=== PATIENT | female | born 1995 | race Caucasian/White ===

== ENCOUNTER 2020-02-23 20:10 | Emergency (ER) | payer MEDICAID, SELFPAY ==
--- NOTE | 2020-02-23 20:25 | XRR_ITS ---
PROCEDURE INFORMATION: Exam: XR Chest, 2 Views Exam date and time: 02/23/2020 9:23 PM Age: 24 years old Clinical indication: Cough; Additional info: Shortness of breath/cough TECHNIQUE: Imaging protocol: XR of the chest Views: 2 views. COMPARISON: CR Chest 1 [place] [id number] 02/08/2019 8:18 PM FINDINGS: Lungs: Unremarkable. No consolidation. Pleural space: Unremarkable. No pleural effusion. No pneumothorax. Heart/Mediastinum: Unremarkable. No cardiomegaly. Bones/joints: Unremarkable. XR/XR chest 2V* [id number] IMPRESSION: No acute findings.
[2020-02-23 20:49] VITALS: BP 123/80; PULSE 105; RESP 18; TEMP 36.6; O2SAT 97; BMI 41.0
--- NOTE | 2020-02-23 21:52 | W.ED.URI ---
HPI - URI/Sore Throat General: Chief Complaint: Upper Respiratory Infection Stated Complaint: COUGH/SOB Time Seen by Provider: 02/23/20 21:33 Source: patient Mode of arrival: ambulatory Limitations: no limitations History of Present Illness: HPI Narrative: Patient comes in with 2-day history of upper respiratory infection. Patient reports cough nasal drainage and malaise. Patient appears unwell. Patient appears in no pain. Review of Systems General: Reports: 10 or more systems reviewed and unremarkable except in HPI and below ENMT: Reports: nasal discharge Resp: Reports: non-productive cough [facility] ED Female Reproductive History: Date of last menstrual period: 02/01/20 Physical Exam Const: COMMON NORMALS: no acute distress and patient oriented x3 GENERAL APPEARANCE: cooperative HENMT: COMMON NORMALS: normocephalic and TM's normal bilaterally HEAD & SCALP: normal to inspection and normocephalic NOSE: Nasal discharge present TYMPANIC MEMBRANE: TM's normal bilaterally MOUTH: Normal oral and palatal mucosa present THROAT: posterior oropharynx normal Eye: GENERAL EYE: appearance normal, both eyes and all related structures Neck/C-Spine: COMMON NORMALS: full ROM Lymph: LYMPHATIC: no lymphadenopathy noted Chest: COMMONS NORMALS: normal inspection of the chest Resp: COMMON NORMALS: normal respiratory effort EFFORT & INSPECTION: Yes able to speak in complete sentences Cardio: COMMON NORMALS: regular rate and regular rhythm RATE: regular rate RHYTHM: regular rhythm GI: COMMON NORMALS: non-tender Back/Pelvis: COMMON NORMALS: thoracic and lumbar spine normal to inspection Extremity: COMMON NORMALS: normal to inspection Neuro: COMMON NORMALS: patient oriented x3 and moves all extremities Psych: COMMON NORMALS: mental status grossly normal and cooperative Skin: COMMON NORMALS: no rashes or lesions noted GENERAL SKIN EXAM: no rashes or lesions noted Course Vital Signs: Vital signs: Vital Signs Temperature 97.8 F 02/23/20 20:49 Pulse Rate 105 H 02/23/20 20:49 Respiratory Rate 18 02/23/20 20:49 Blood Pressure 123/80 02/23/20 20:49 Pulse Oximetry 97 02/23/20 20:49 MDM - URI/Sore Throat MDM Narrative: Medical decision making narrative: Patient comes in with respiratory infection. Patient reports runny nose cough for the last 2 days. Patient reports her son became sick first and then she became ill. 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 Exam notes nasal discharge, pharyngeal erythema, lungs clear to auscultation. Vital signs normal. Differential diagnosis includes but not limited to upper respiratory infection sinusitis, bronchitis. Reviewed exam recommended treatment with albuterol and Mucinex D. Encourage plenty of fluids Tylenol and ibuprofen for aches and pains. 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 Patient reports understanding of care plan and need for follow-up and self quarantine. Discharge Plan Discharge Patient Disposition: Home, Self-Care Clinical Impression: Upper respiratory infection Qualifiers: URI type: unspecified URI Qualified Code(s): J06.9 - Acute upper respiratory infection, unspecified Condition: Stable Prescriptions: New albuterol sulfate 90 mcg/actuation HFA aerosol inhaler 2 inh INHALATION Q4H PRN (Reason: shortness of breath or wheezing) Qty: 8.5 RF: 0 Mucinex D 60-600 mg tablet extended release 12 hr 1 tab PO BID Qty: 14 RF: 0 Discharge Orders: Discharge Order (Routine); Ordered 02/23/20 Ordered By: Pravin Dyer Discharge Diet: Usual diet Discharge Activity: Increase activity as tolerated Patient Instructions: Upper Respiratory Infection (ED) Activity Restrictions/Additional Instructions: Encourage plenty of fluids. Acetaminophen and ibuprofen for aches and pains or fever. Use medication Mucinex D and albuterol inhaler as directed. Follow-up with primary care as needed. Return to the ER for worsening symptoms. Self quarantine for the next 3 days while COVID testing is running. Stand Alone Forms: Work/School Release Coding Level of Care Code ED Commutator Inspector for Mahesh Goddard
[2020-02-25 18:31] LABS: Quest SARS-CoV-2 RNA NOT DETECTED (NOT DETECTED)
== END 2020-02-23 22:18 | disposition home or self-care (01) ==
PROVIDERS: Emergency Provider Nurse Practitioner Family
DX: J06.9 Acute upper respiratory infection, unspecified (principal)
CPT/HCPCS: 12345; 71046; 87635; 99281; 99283

== ENCOUNTER 2020-03-13 14:15 | Outpatient (CLI) | payer OTHER, SELFPAY ==
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
== END 2020-03-13 14:16 | disposition home or self-care (01) ==
LOC: RAD 14:20
PROVIDERS: Visit Provider Nurse Practitioner Family
DX: N92.6 Irregular menstruation, unspecified (principal); N94.10 Unspecified dyspareunia; R10.30 Lower abdominal pain, unspecified
CPT/HCPCS: 76830; 76856

== ENCOUNTER 2020-05-18 17:57 | Emergency (ER) | payer OTHER, SELFPAY ==
[2020-05-18 20:05] VITALS: BP 123/91; PULSE 97; RESP 17; TEMP 36.6; O2SAT 97; BMI 42.5
--- NOTE | 2020-05-18 20:11 | W.ED.COVID ---
HPI - COVID General: Chief Complaint: COVID symptoms Stated Complaint: +COVID 2 DAYS AGO, INCREASED SYMPTOMS TODAY Time Seen by Provider: 05/18/20 19:51 Source: patient Mode of arrival: ambulatory Limitations: no limitations Triage information: Has fever, cough or shortness of breath. Exposure to COVID + person last 14 days History of Present Illness: HPI Narrative: Patient reports that she tested positive for COVID 3 days ago. Patient appears mildly unwell. Patient appears in no acute distress. COVID 19 common symptoms: positive dyspnea COVID Results: SARS-CoV-2 RNA (RT-PCR) Not detected (NOT DETECTED) 02/23/20 22:00 02/23/20 Review of Systems General: Reports: 10 or more systems reviewed and unremarkable except in HPI and below Resp: Reports: dyspnea [facility] ED Female Reproductive History: Date of last menstrual period: 05/09/20 Physical Exam Const: COMMON NORMALS: no acute distress and patient oriented x3 GENERAL APPEARANCE: cooperative HENMT: COMMON NORMALS: normocephalic, TM's normal bilaterally and Normal external nose present HEAD & SCALP: normal to inspection and normocephalic NOSE: Normal external nose present TYMPANIC MEMBRANE: TM's normal bilaterally MOUTH: Normal oral and palatal mucosa present THROAT: posterior oropharynx normal Eye: GENERAL EYE: appearance normal, both eyes and all related structures Neck/C-Spine: COMMON NORMALS: full ROM Lymph: LYMPHATIC: no lymphadenopathy noted Chest: COMMONS NORMALS: normal inspection of the chest Resp: COMMON NORMALS: normal respiratory effort EFFORT & INSPECTION: Yes able to speak in complete sentences Cardio: COMMON NORMALS: regular rate and regular rhythm RATE: regular rate RHYTHM: regular rhythm GI: COMMON NORMALS: non-tender Back/Pelvis: COMMON NORMALS: thoracic and lumbar spine normal to inspection Extremity: COMMON NORMALS: normal to inspection Neuro: COMMON NORMALS: patient oriented x3 and moves all extremities Psych: COMMON NORMALS: mental status grossly normal and cooperative Skin: COMMON NORMALS: no rashes or lesions noted GENERAL SKIN EXAM: no rashes or lesions noted Course Vital Signs: Vital signs: Vital Signs Temperature 97.9 F 05/18/20 20:05 Pulse Rate 97 05/18/20 20:05 Respiratory Rate 17 05/18/20 20:05 Blood Pressure 123/91 05/18/20 20:05 Pulse Oximetry 97 05/18/20 20:05 MDM - COVID MDM Narrative Medical decision making narrative: Patient comes in for concerns of worsening COVID symptoms. Patient has been diagnosed 3 days prior. Exam was normal. No signs of significant illness. Differential diagnosis includes close COVID exposure, COVID-19, upper respiratory infection, allergic rhinitis. Vital signs are normal. Reviewed pulse oximetry use. Recommendations for treatment and follow-up. Lab Data COVID Results: SARS-CoV-2 RNA (RT-PCR) Not detected (NOT DETECTED) 02/23/20 22:00 02/23/20 Discharge Plan Discharge Patient Disposition: Home Clinical Impression: COVID-19 Condition: Stable Prescriptions: No Action albuterol sulfate 90 mcg/actuation HFA aerosol inhaler 2 inh INHALATION Q4H PRN (Reason: shortness of breath or wheezing) Qty: 8.5 RF: 0 Mucinex D 60-600 mg tablet extended release 12 hr 1 tab PO BID Qty: 14 RF: 0 Discharge Orders: Discharge Order (Routine); Ordered 05/18/20 Ordered By: Pravin Dyer Discharge Diet: Usual diet Discharge Activity: Increase activity as tolerated Activity Restrictions/Additional Instructions: Home and rest. Acetaminophen and ibuprofen for pain and discomfort. Drink plenty of fluids. Stay well-hydrated. Monitor oxygen per pulse ox every 3 hours as needed for evaluation of oxygen saturation. If oxygen saturation is below 90% return to the ER for further evaluation and treatment. Return to the ER as needed for concern. Coding Level of Care Code ED Motor Brakeman for Mahesh Goddard
[2020-05-18 20:54] VITALS: O2SAT 97
== END 2020-05-18 21:12 | disposition home or self-care (01) ==
PROVIDERS: Emergency Provider Nurse Practitioner Family
DX: U07.1 COVID-19 (principal)
CPT/HCPCS: 12345; 99282

== ENCOUNTER 2020-07-25 11:22 | Emergency (ER) | payer OTHER, SELFPAY ==
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
[2020-07-25 11:27] VITALS: BP 116/83; PULSE 91; RESP 18; TEMP 36.3; O2SAT 96; BMI 42.5
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
[2020-07-25] MEDS: ketorolac 60 mg/2 mL INJ IM (12:50)
[2020-07-25 14:02] VITALS: BP 105/72; PULSE 72; RESP 14; O2SAT 97
[2020-07-25 15:06] VITALS: BP 120/78; PULSE 76; RESP 14; O2SAT 97
== END 2020-07-25 15:06 | disposition home or self-care (01) ==
PROVIDERS: Emergency Provider Physician Assistant
DX: Z04.1 Encounter for examination and observation following transport accident (principal); K04.7 Periapical abscess without sinus; V89.2XXA Person injured in unspecified motor-vehicle accident, traffic, initial encounter
CPT/HCPCS: 12345; 70450; 70486; 71046; 73562; 96372; 99281; 99283; J1885

== ENCOUNTER 2021-02-03 19:17 | Emergency (ER) | payer OTHER, SELFPAY ==
[2021-02-03 19:29] VITALS: BP 116/77; PULSE 88; RESP 16; TEMP 36.9; O2SAT 98; BMI 42.5
--- NOTE | 2021-02-03 20:10 | XRR_ITS ---
PROCEDURE INFORMATION: Exam: XR Left Ankle Exam date and time: 02/03/2021 8:10 PM Age: 25 years old Clinical indication: Injury or trauma; Fall; Blunt trauma and swelling (edema); Injury details: Folding chair collapsed, left ankle swelling and bruising TECHNIQUE: Imaging protocol: XR Left ankle. Views: 3 or more views. COMPARISON: No relevant prior studies available. FINDINGS: Bones/joints: No acute fracture or dislocation. Soft tissues: Normal. XR/XR ankle LT min 3V* [id number] IMPRESSION: No acute fracture or dislocation.
--- NOTE | 2021-02-03 20:10 | XRR_ITS ---
PROCEDURE INFORMATION: Exam: XR Right Ankle Exam date and time: 02/03/2021 8:10 PM Age: 25 years old Clinical indication: Injury or trauma; Fall; Blunt trauma and swelling (edema); Injury details: Folding chair collapsed, right ankle swelling and bruising TECHNIQUE: Imaging protocol: XR Right ankle. Views: 3 or more views. COMPARISON: No relevant prior studies available. FINDINGS: Bones/joints: No acute fracture or dislocation. Soft tissues: Normal. XR/XR ankle RT min 3V* [id number] IMPRESSION: No acute fracture or dislocation.
--- NOTE | 2021-02-03 22:06 | ED_ITS ---
HPI - Extremity Injury (Lower) General: Chief Complaint: Extremity Injury, Lower Stated Complaint: wc/ankle injury Time Seen by Provider: 02/03/21 22:03 Source: patient Mode of arrival: ambulatory Limitations: no limitations History of Present Illness: HPI Narrative: Patient is a 25-year-old female who presents to ED today with complaints of bilateral ankle and foot pain that o ccurred yesterday after she was sitting in a collapsible chair in the chair collapsed causing her ankles to get caught underneath her. Patient has been ambulatory since the event but states she has noticed swelling and bruising and increasing pain. She has no other complaints and no other injuries at this time. complaint: ankle injury and foot injury Onset (ago): day(s) (yesterday) Injury: Bilateral: ankle and foot Place: home Relieving factors: immobilization Exacerbating factors: weight bearing, movement and palpation Context: fall Associated symptoms: Reports no associated symptoms Other symptoms: none Review of Systems Musc: Reports: joint pain (bilateral feet/ankles) and joint swelling (bilateral ankles) Neuro: Denies: numbness in extremities or sensory changes [facility] ED Female Reproductive History: Date of last menstrual period: 01/06/21 Physical Exam Const: COMMON NORMALS: no acute distress, patient oriented x3, no limitations and alert GENERAL APPEARANCE: cooperative NUTRITIONAL APPEARANCE: overweight Extremity: RIGHT LOWER EXTREMITY: Yes foot & digits and Yes foot & digits LEFT LOWER EXTREMITY: Yes ankle joint and Yes foot & digits OTHER: swelling and throughout bilateral ankles; she has ecchymosis to bilateral medial aspects of feet; bilateral LEs NV intact Neuro: COMMON NORMALS: patient oriented x3, moves all extremities, no focal motor deficits and no sensory deficits noted SENSORIUM/ORIENTATION: Yes alert Skin: NARRATIVE SKIN EXAM: see extremity assessment for pertinent skin findings Course Vital Signs: Vital signs: Vital Signs Temperature 98.5 F 02/03/21 19:29 Pulse Rate 85 02/03/21 22:52 Respiratory Rate 16 02/03/21 22:52 Blood Pressure 116/77 02/03/21 19:29 Pulse Oximetry 99 02/03/21 22:52 MDM - Extremity Injury (Lower) MDM Narrative: Medical decision making narrative: Bilateral foot/ankle XRs negative. Discussed RICE therapy. Can follow up with PCP in 1-2 weeks for continued pain. Discharge Plan Discharge Patient Disposition: Home Clinical Impression: Ankle sprain Qualifiers: Encounter type: initial encounter Involved ligament of ankle: unspecified ligament Laterality: unspecified laterality Qualified Code(s): S93.409A - Sprain of unspecified ligament of unspecified ankle, initial encounter Foot sprain Qualifiers: Encounter type: initial encounter Laterality: unspecified laterality Qualified Code(s): S93.609A - Unspecified sprain of unspecified foot, initial encounter Condition: Stable Prescriptions: No Action albuterol sulfate 90 mcg/actuation HFA aerosol inhaler 2 inh INHALATION Q4H PRN (Reason: shortness of breath or wheezing) Qty: 8.5 RF: 0 Mucinex D 60-600 mg tablet extended release 12 hr 1 tab PO BID Qty: 14 RF: 0 ibuprofen 800 mg tablet 800 mg PO Q8H PRN (Reason: pain) Qty: 30 RF: 0 methocarbamol 750 mg tablet 750 mg PO Q8H Qty: 15 RF: 0 Discharge Orders: Discharge ED (Routine); Ordered 02/03/21 Ordered By: Bonnie Figueroa Patient Instructions: Ankle Sprain (ED), Foot Sprain (ED) Coding Level of Care Code ED Government Affairs Researcher for Chg Fwd Exam Expanded Problem Focused
--- NOTE | 2021-02-03 22:09 | XRR_ITS ---
PROCEDURE INFORMATION: Exam: XR Left Foot Exam date and time: 02/03/2021 10:09 PM Age: 25 years old Clinical indication: Injury or trauma; Fall; Blunt trauma and swelling (edema); Injury details: Folding chair collapsed, left foot swelling and bruising TECHNIQUE: Imaging protocol: XR Left foot. Views: 3 or more views. COMPARISON: CR (LOW EXM, ) 02/03/2021 10:09 PM FINDINGS: Bones/joints: No acute fracture or dislocation. Soft tissues: Normal. XR/XR foot LT min 3V* [id number] IMPRESSION: No acute fracture or dislocation.
--- NOTE | 2021-02-03 22:09 | XRR_ITS ---
PROCEDURE INFORMATION: Exam: XR Right Foot Exam date and time: 02/03/2021 10:09 PM Age: 25 years old Clinical indication: Injury or trauma; Fall; Blunt trauma and swelling (edema); Injury details: Folding chair collapsed, right foot swelling and bruising TECHNIQUE: Imaging protocol: XR Right foot. Views: 3 or more views. COMPARISON: CR (LOW EXM, ) 02/03/2021 10:07 PM FINDINGS: Bones/joints: No acute fracture or dislocation. Soft tissues: Normal. XR/XR foot RT min 3V* [id number] IMPRESSION: No acute fracture or dislocation.
[2021-02-03 22:52] VITALS: PULSE 85; RESP 16; O2SAT 99
--- NOTE | 2021-02-05 11:37 | PC.SOCIAL ---
Notified Lavinia Durbin in HR at [facility] on injury and eval being done in ED with approval from Aguila Stewart RN, RAYMOND.
== END 2021-02-03 22:53 | disposition home or self-care (01) ==
PROVIDERS: Emergency Provider Physician Assistant
DX: S93.409A Sprain of unspecified ligament of unspecified ankle, initial encounter (principal); S93.609A Unspecified sprain of unspecified foot, initial encounter; X50.1XXA Overexertion from prolonged static or awkward postures, initial encounter
CPT/HCPCS: 73610; 73630; 99282

== ENCOUNTER → 2021-04-17 16:58 | Outpatient (BNVA) | payer MEDICAID, SELFPAY | PROVIDERS: Visit Provider Registered Nurse Neonatal Intensive Care | DX: Z32.00 Encounter for pregnancy test, result unknown (principal); J02.9 Acute pharyngitis, unspecified | CPT/HCPCS: 81025; 87880 ==

== ENCOUNTER 2021-08-22 17:56 | Emergency (ER) | payer BC, SELFPAY ==
[2021-08-22 18:18] VITALS: BP 131/89; PULSE 70; RESP 16; TEMP 36.4; O2SAT 98; BMI 41.1
--- NOTE | 2021-08-22 18:32 | ED_ITS ---
HPI - Back Pain/Injury General: Chief Complaint: Urogenital-Female Stated Complaint: LOWER BACK PAIN Time Seen by Provider: 08/22/21 18:09 Source: patient Mode of arrival: ambulatory Limitations: no limitations History of Present Illness: HPI Narrative: Patient is a 25-year-old female who presents to ED today with complaints of left sided back pain over the past 2 days. Patient denies any trauma or precipitating injuries. There is no radiation to her discomfort. She does not complain of dysuria, frequency, urgency but has noticed her urine is brown in color which is abnormal for her. She does not have a history of nephro/ureterolithiasis. Denies fevers, chills, body aches. MD elicited complaint: back pain Onset (ago): day(s) Timing: constant Similar Symptoms Previously: No Location: left lower back Radiation: none Exacerbating factors: none Relieving factors: none Associated symptoms: Reports nausea; Deny abdominal pain, chills, difficulty walking, dysuria, fatigue, fever(s), urinary urgency or vomiting Work related injury: No Review of Systems Const: Denies: fever(s), chills, body aches, fatigue or malaise Card: Denies: chest pain Resp: Denies: dyspnea GI: Reports: nausea; Denies: abdominal pain, vomiting or diarrhea : Reports: flank pain and other (dark urine); Denies: difficulty voiding, dysuria, urinary frequency, urinary urgency, urinary hesitancy, dribbling or pelvic pain Musc: Reports: back pain; Denies: neck pain, extremity pain, joint pain or joint swelling Skin/Breast: Denies: rash Neuro: Denies: headache(s), numbness in extremities, weakness in extremities, sensory changes, difficulty walking or dizziness [facility] ED Female Reproductive History: Date of last menstrual period: 01/06/21 Physical Exam Const: COMMON NORMALS: no acute distress, patient oriented x3, no limitations and alert GENERAL APPEARANCE: cooperative NUTRITIONAL APPEARANCE: obese morbidly obese ORIENTATION/CONSCIOUSNESS: Yes awake, Yes oriented to person, Yes oriented to place and Yes oriented to time Chest: COMMONS NORMALS: normal inspection of the chest and normal palpation of entire chest wall Resp: COMMON NORMALS: normal respiratory effort and clear to auscultation bilaterally AUSCULTATION: clear to auscultation bilaterally Cardio: COMMON NORMALS: regular rate and regular rhythm RATE: regular rate RHYTHM: regular rhythm GI: COMMON NORMALS: Normal to inspection, nondistended, normoactive bowel sounds present, Soft to palpation, non-tender, No hepatosplenomegaly present and no masses PALPATION: Yes Soft to palpation and Yes No hepatosplenomegaly present Back/Pelvis: BACK IMAGE (FEMALE): 1. TTP Extremity: COMMON NORMALS: normal to inspection and full ROM GENERAL: Yes normal exam except as noted Neuro: COMMON NORMALS: patient oriented x3, moves all extremities, no focal motor deficits, no sensory deficits noted and gait normal SENSORIUM/ORIENTATION: Yes alert, Yes oriented to person, Yes oriented to place and Yes oriented to time Skin: COMMON NORMALS: no rashes or lesions noted GENERAL SKIN EXAM: no rashes or lesions noted Course Vital Signs: Vital signs: Vital Signs Temperature 97.6 F 08/22/21 18:18 Pulse Rate 70 08/22/21 18:18 Respiratory Rate 16 08/22/21 18:18 Blood Pressure 131/89 08/22/21 18:18 Pulse Oximetry 98 08/22/21 18:18 MDM - Back Pain/Injury MDM Narrative: Medical decision making narrative: Patient is a 25-year-old female here for left-sided back pain. On CT imaging she has a mild left obstructive uropathy due to a 7 mm calculus in her proximal ureter. Pain is easily controlled here. Her vital signs are stable. Lab work is unremarkable. She has a normal white count. Kidney functions are normal. UA showing gross hematuria. Contaminated specimen. At this time we will treat with pain/nausea medications and Flomax and get her prompt follow-up with Dr. Ley for further evaluation. Strict return to ED precautions given. Lab Data: Labs: Lab Results 08/22/21 08/22/21 08/22/21 18:53 19:51 19:51 WBC 7.5 10^3/uL 10^3/ uL (4.0-10.0) RBC 4.99 10^6/uL 10^6 /uL (4.1-5.3) Hgb 14.8 g/dL g/dL (11.5-15.3) Hct 45.1 % % (37.0-47.0) MCV 90.4 fl fl (81-99) MCH 29.7 pg pg (28.0-34.0) MCHC 32.8 g/dL g/dL (30.0-36.0) RDW 12.3 % % (12.1-15.1) Plt Count 359 10^3/cmm 10^3 /cmm (130-400) MPV 11.0 fL H fL (7.4-10.4) Neut % (Auto) 66.1 % % Lymph % (Auto) 24.8 % % [place] % (Auto) 6.3 % % Eos % (Auto) 1.7 % % Baso % (Auto) 0.8 % % Neut # (Auto) 4.96 10^3/uL 10^3 /uL (1.8-7.7) Lymph # (Auto) 1.9 10^3/uL 10^3/ uL (0.8-4.8) [place] # (Auto) 0.5 10^3/uL 10^3/ uL (0.2-0.9) Eos # (Auto) 0.1 10^3/uL 10^3/ uL (0.0-0.8) Baso # (Auto) 0.1 10^3/uL 10^3/ uL (0.0-0.1) Nucleated RBC % (a uto) 0 % % Nucleated RBCs # 0.0 /100WBC /100W BC Sodium 139 mmol/L mmol/L (136-145) Potassium 4.2 mmol/L mmol/L (3.5-5.1) Chloride 104 mmol/L mmol/L (98-107) Carbon Dioxide 24 mmol/L mmol/L (22-29) Anion Gap 15.2 (5-19) BUN 11 mg/dL mg/dL (6-20) Creatinine 1.0 mg/dL H mg/dL (0.5-0.9) GFR Calculation 66.5 mL/min L mL/ min (90-130) Glucose 88 mg/dL mg/dL (65-115) Calculated Osmolal ity 287 mOsm/kg mOsm/ kg (285-295) Calcium 9.2 mg/dL mg/dL (8.5-10.5) Total Bilirubin 0.3 mg/dL mg/dL (0.15-1.2) AST 20 U/L U/L (0-32) ALT 27 U/L U/L (0-33) Alkaline Phosphata se 93 IU/L IU/L (35-105) Total Protein 7.1 g/dL g/dL (6.6-8.7) Albumin 4.5 g/dL g/dL (3.5-5.2) Globulin 2.6 g/dL g/dL (1.3-4.6) HCG, Qual Urine Color Brown (Yellow) Urine Appearance Cloudy (CLEAR) Urine pH 6.5 (5-7) Ur Specific Gravit y 1.025 (1.005-1.030) Urine Protein 2+ H (Negative) Urine Glucose (UA) Norm (Normal) Urine Ketones 1+ H (Negative) Urine Blood 3+ H (Negative) Urine Nitrate Negative (Negative) Urine Bilirubin 1+ H (Negative) Urine Urobilinogen 1 mg/dL H mg/dL (Negative) Ur Leukocyte Lizz ase 1+ H (Negative) Urine RBC Too numerous to c nt /hpf H /hpf (0-2) Urine WBC 10-15 /hpf H /hpf (0-5) Ur Squamous Epith Cells 10-15 /hpf H /hpf (0-5) Amorphous Sediment Not Reportable Urine Bacteria 1+ /hpf H /hpf (NONE) Urine Yeast 2+ /hpf H /hpf 08/22/21 19:51 WBC RBC Hgb Hct MCV MCH MCHC RDW Plt Count MPV Neut % (Auto) Lymph % (Auto) [place] % (Auto) Eos % (Auto) Baso % (Auto) Neut # (Auto) Lymph # (Auto) [place] # (Auto) Eos # (Auto) Baso # (Auto) Nucleated RBC % (a uto) Nucleated RBCs # Sodium Potassium Chloride Carbon Dioxide Anion Gap BUN Creatinine GFR Calculation Glucose Calculated Osmolal ity Calcium Total Bilirubin AST ALT Alkaline Phosphata se Total Protein Albumin Globulin HCG, Qual Negative (Negative) Urine Color Urine Appearance Urine pH Ur Specific Gravit y Urine Protein Urine Glucose (UA) Urine Ketones Urine Blood Urine Nitrate Urine Bilirubin Urine Urobilinogen Ur Leukocyte Lizz ase Urine RBC Urine WBC Ur Squamous Epith Cells Amorphous Sediment Urine Bacteria Urine Yeast Imaging Data^: CT renal: Radiologist's impression: [facility] [address] [place] [address] CT Scan Report Signed Patient: Massiel Antoine Unit #: [id number] : 1995 Acct#:[id number] Age/Sex: 25 / F ADM Date: Loc: ER Room/Bed: Attending Dr: Ordering Provider/Ordering MD: Bonnie Figueroa Date of Service: 08/22/21 Procedure(s): CT kidney stone 10951 Accession Number(s): [id number] Report Number: [id number] PROCEDURE INFORMATION: Exam: CT Abdomen And Pelvis Without Contrast Exam date and time: 08/22/2021 7:42 PM Age: 25 years old Clinical indication: Other: Hematuria; Abdominal pain; Flank; Left; Prior surgery; Surgery type: ; Additional info: L back pain; Hematuria TECHNIQUE: Imaging protocol: Computed tomography of the abdomen and pelvis without contrast. Radiation optimization: All CT scans at this facility use at least one of these dose optimization techniques: automated exposure control; mA and/or kV adjustment per patient size (includes targeted exams where dose is matched to clinical indication); or iterative reconstruction. COMPARISON: US pelvic with transvaginal 03/13/2020 2:19 PM RADIATION DOSE METRICS: Total DLP (mGy-cm): 1973.96 FINDINGS: Liver: Normal. No mass. Gallbladder and bile ducts: Normal. No calcified stones. No ductal dilation. Pancreas: Normal. No ductal dilation. Spleen: Normal. No splenomegaly. Adrenal glands: Normal. No mass. Kidneys and ureters: There is mild left obstructive uropathy due to a 7 x 5 x 4 mm calculus in the proximal 3rd of the ureter. There is an additional 5 mm stone in the left lower renal pole and several smaller stones bilaterally in each kidney. Stomach and bowel: See Soft tissues finding. Appendix: No evidence of appendicitis. Intraperitoneal space: Unremarkable. No free air. No significant fluid collection. Vasculature: Unremarkable. No abdominal aortic aneurysm. Lymph nodes: Unremarkable. No enlarged lymph nodes. Urinary bladder: Unremarkable as visualized. Reproductive: Unremarkable as visualized. Bones/joints: Unremarkable. No acute fracture. Soft tissues: There is rectus diastasis of the mid abdominal wall measuring 5.9 cm. No bowel entrapment. CT/CT kidney stone [id number] IMPRESSION: 1. Mild left obstructive uropathy due to a 7 mm calculus in the proximal 3rd of the ureter. 2. Additional small bilateral nonobstructing intrarenal calculi. Dictated By: Rachel Garcia MD Signed By: Rachel Garcia MD Signed Date/Time: 08/22/212121 DD/ 41 Discharge Plan Discharge Patient Disposition: Home Clinical Impression: Calculus of proximal left ureter, Calculus of left kidney Condition: Stable Prescriptions: New hydrocodone-acetaminophen 5-325 mg tablet 1 tab PO Q6H PRN (Reason: pain) Qty: 15 RF: 0 ondansetron HCl [Zofran] 4 mg tablet 4 mg PO Q6H PRN (Reason: nausea and vomiting) Qty: 14 RF: 0 tamsulosin [Flomax] 0.4 mg capsule 0.4 mg PO DAILY Qty: 10 RF: 0 No Action amoxicillin 500 mg capsule 500 mg PO BID 10 Days Qty: 20 RF: 0 Discharge Orders: Discharge ED (Routine); Ordered 08/22/21 Ordered By: Bonnie Figueroa Referrals: Daniel Ley MD [Physician] - Patient Instructions: Kidney Stones (ED), How to Strain Your Urine (ED), Ureteral Stones (ED), Opioid Safety Activity Restrictions/Additional Instructions: [facility] is committed to fighting the nationwide opiate epidemic. We are providing ALL patients with information regarding opiate safety. If you received opiate pain medication during your stay or if you received a prescription for opiate pain medication-please review this handout. If not, you may disregard. Thank you. As we discussed Case management should contact you tomorrow to set you up with your follow-up appointment with Dr. Ley. You need to return to the [facility] department immediately for severe back/abdominal pain, uncontrollable pain, generally feeling unwell, fevers greater than 100.4, or any other concerns you may have. I hope you begin to feel better soon. Stand Alone Forms: Work/School Release Coding Level of Care Code ED Warehouse Administrative Assistant for Mahesh Fwd Exam Comprehensive
[2021-08-22 19:35] LABS: Specific Gravity, Urine 1.025 (1.005-1.030); Urine Appearance Cloudy (CLEAR); Urine Color Brown (Yellow); pH Urine 6.5 (5-7)
[2021-08-22 19:36] LABS: Add Urine Microscopic? YES; Bacteria Urine 1+ /hpf; Bilirubin Urine 1+ (Negative); Blood Urine 3+ (Negative); Glucose Urine UA Norm (Normal); Ketones Urine 1+ (Negative); Leukocyte Esterase Urine 1+ (Negative); Nitrate Urine Negative (Negative); Protein Urine 2+ (Negative); RBC Urine TOO NUMEROUS TO CNT /hpf (0-2); Urobilinogen Urine 1 mg/dL (Negative)
[2021-08-22 19:37] LABS: Add Urine Culture? No
--- NOTE | 2021-08-22 19:42 | CTR_ITS ---
PROCEDURE INFORMATION: Exam: CT Abdomen And Pelvis Without Contrast Exam date and time: 08/22/2021 7:42 PM Age: 25 years old Clinical indication: Other: Hematuria; Abdominal pain; Flank; Left; Prior surgery; Surgery type: ; Additional info: L back pain; Hematuria TECHNIQUE: Imaging protocol: Computed tomography of the abdomen and pelvis without contrast. Radiation optimization: All CT scans at this facility use at least one of these dose optimization techniques: automated exposure control; mA and/or kV adjustment per patient size (includes targeted exams where dose is matched to clinical indication); or iterative reconstruction. COMPARISON: US pelvic with transvaginal 03/13/2020 2:19 PM RADIATION DOSE METRICS: Total DLP (mGy-cm): 1973.96 FINDINGS: Liver: Normal. No mass. Gallbladder and bile ducts: Normal. No calcified stones. No ductal dilation. Pancreas: Normal. No ductal dilation. Spleen: Normal. No splenomegaly. Adrenal glands: Normal. No mass. Kidneys and ureters: There is mild left obstructive uropathy due to a 7 x 5 x 4 mm calculus in the proximal 3rd of the ureter. There is an additional 5 mm stone in the left lower renal pole and several smaller stones bilaterally in each kidney. Stomach and bowel: See Soft tissues finding. Appendix: No evidence of appendicitis. Intraperitoneal space: Unremarkable. No free air. No significant fluid collection. Vasculature: Unremarkable. No abdominal aortic aneurysm. Lymph nodes: Unremarkable. No enlarged lymph nodes. Urinary bladder: Unremarkable as visualized. Reproductive: Unremarkable as visualized. Bones/joints: Unremarkable. No acute fracture. Soft tissues: There is rectus diastasis of the mid abdominal wall measuring 5.9 cm. No bowel entrapment. CT/CT kidney stone [id number] IMPRESSION: 1. Mild left obstructive uropathy due to a 7 mm calculus in the proximal 3rd of the ureter. 2. Additional small bilateral nonobstructing intrarenal calculi.
[2021-08-22 20:06] LABS: Basophils # 0.1 10^3/uL (0.0-0.1); Basophils % 0.8 %; Eosinophils # 0.1 10^3/uL (0.0-0.8); Eosinophils % 1.7 %; Hematocrit 45.1 % (37.0-47.0); Hemoglobin 14.8 g/dL (11.5-15.3); Lymphocytes # 1.9 10^3/uL (0.8-4.8); Lymphocytes % 24.8 %; Mean Corpuscular HGB Conc 32.8 g/dL (30.0-36.0); Mean Corpuscular Hemoglobin 29.7 pg (28.0-34.0); Mean Corpuscular Volume 90.4 fl (81-99); Monocytes # 0.5 10^3/uL (0.2-0.9); Monocytes % 6.3 %; Neutrophils # 4.96 10^3/uL (1.8-7.7); Neutrophils % 66.1 %; Nucleated Red Blood Cells % 0 %; Platelet Count 359 10^3/cmm (130-400); Red Blood Count 4.99 10^6/uL (4.1-5.3); Red Cell Distribution Width 12.3 % (12.1-15.1); White Blood Count 7.5 10^3/uL (4.0-10.0)
[2021-08-22 20:40] LABS: HCG, Serum Qual Negative (Negative)
[2021-08-22] MEDS: acetaminophen 500 mg Tablet 1000 MG PO (20:45)
[2021-08-22 20:51] LABS: Alanine Aminotransferase 27 U/L (0-33); Albumin Level 4.5 g/dL (3.5-5.2); Alkaline Phosphatase 93 IU/L (35-105); Anion Gap 15.2 (5-19); Aspartate Amino Transferase 20 U/L (0-32); Blood Urea Nitrogen 11 mg/dL (6-20); Calcium 9.2 mg/dL (8.5-10.5); Carbon Dioxide 24 mmol/L (22-29); Chloride 104 mmol/L (98-107); Globulin 2.6 g/dL (1.3-4.6); Glomerular Filtration Rate 66.5 mL/min (90-130); Glucose 88 mg/dL (65-115); Osmolality Calculated 287 mOsm/kg (285-295); Potassium 4.2 mmol/L (3.5-5.1); Sodium 139 mmol/L (136-145); Total Bilirubin 0.3 mg/dL (0.15-1.2); Total Protein 7.1 g/dL (6.6-8.7)
[2021-08-22 22:34] VITALS: BP 127/89; RESP 18; O2SAT 98
--- NOTE | 2021-08-26 07:04 | DCPLANNER ---
exploration manager had message to schedule a follow up appointment for patient with Dr. Ley. exploration manager emailed patients information to Eladio Kruger and Julie in the office of Dr. Ley. Patients information will be printed and reviewed. Clinic will call patient with appointment information.
--- NOTE | 2021-08-27 07:01 | DCPLANNER ---
Patient had a follow up appointment scheduled for 08.26.[address] Ley - patient did attend appointment.
== END 2021-08-22 22:36 | disposition home or self-care (01) ==
PROVIDERS: Emergency Provider Physician Assistant
DX: N20.2 Calculus of kidney with calculus of ureter (principal)
CPT/HCPCS: 74176; 80053; 81001; 84703; 85025; 87086; 99283

== ENCOUNTER 2021-08-26 07:48 | Outpatient (CLI) | payer BC, SELFPAY ==
--- NOTE | 2021-08-26 07:30 | XR_ITS ---
WS: [id number] Exam: XR KUB [id number] Date/Time of Exam: 08/26/2021 7:57 AM Reason For Exam: STONES No bowel obstruction or free air. Previously noted renal calcifications and left ureteral calcificati on not definitely seen on today's exam. There is some motion artifact present. No sign of organ enlar gement. Regional bony elements are intact. XR/XR KUB [id number] IMPRESSION: 1. No acute abdominal finding. 2. Calcified renal stones and left ureteral calcification difficult to identify on this study.
== END 2021-08-26 07:49 | disposition home or self-care (01) ==
LOC: RAD 07:49
PROVIDERS: PCP Nurse Practitioner Family; Visit Provider Nurse Practitioner Family
DX: N20.0 Calculus of kidney (principal); N20.1 Calculus of ureter; Z20.822 Contact with and (suspected) exposure to COVID-19
CPT/HCPCS: 74018; 81003; 87635

== ENCOUNTER 2021-08-28 07:54 | Day surgery (SDC) | payer BC, MEDICAID, SELFPAY ==
[2021-08-27 15:20] VITALS: BMI 42.5
[2021-08-28] VITALS (13 sets, daily range): BP systolic 112–141; BP diastolic 84–96; PULSE 68–99; RESP 12–18; TEMP 36.2–36.4; O2SAT 93–98
--- NOTE | 2021-08-28 | SCC_ITS ---
Procedure Done: 1. Cystoscopy, left retrograde ureteropyelogram 2. LEFT: Ureteroscopy, laser lithotripsy left proximal ureteral stone 3. LEFT: Renoscopy, laser lithotripsy left lower pole additional stone 37.9 seconds of fluoroscopic guidance, for a cumulative dose of 36.67 mGy, was provided to Dr. Ley by the radiology department. C-arm images of the abdomen were saved for the patient's permanent record. MTDD
--- NOTE | 2021-08-28 08:02 | XR_ITS ---
WS: [id number] Exam: XR KUB [id number] Date/Time of Exam: 08/28/2021 8:15 AM Reason For Exam: Left ureteral stone, preop ureteroscopy No bowel obstruction or free air. Calcifications superimpose both kidneys probably renal stones. An 8 mm x 2 mm calcification superimposes the left transverse process of L3 and may represent a ureteral stone. No sign of organ enlargement. Regional bony elements are intact. XR/XR KUB [id number] IMPRESSION: 1. Calcifications superimpose both kidneys probably renal stones. 2. 8 x 2 mm calcification along the left paraspinal region at the level of L3 t hat could represent a ureteral stone. 4. No acute abdominal process.
--- NOTE | 2021-08-28 08:02 | SC_ITS ---
WS: [id number] Exam: C-arm FL for Urology Date/Time of Exam: 08/28/2021 8:02 AM Reason For Exam: Refractory left mid ureteral stone AP C-arm images of the left abdomen and pelvis are submitted for evaluation. Left retrograde pyelogram is performed. An intraluminal filling defect is seen in the upper left uret er and apparently represents the patient's known ureteral stone. Subsequent images depict a left retr ograde ureteral catheter positioned in the expected region of the left kidney. No other significant f inding on this limited study.
--- NOTE | 2021-08-28 08:52 | PM.OPSURHP ---
Providers/Chief Complaint Primary Care Provider: Erika Maher APRN Chief Complaint: calculus of left proximal ureter History of Present Illness Massiel is a 25 year old female admitted to outpatient surgery for endoscopic treatment of left proximal ureteral stone and possibly left renal calculus under the same setting. Presented with refractory renal colic secondary to a 7 mm stone left proximal ureter and was also found to have about a 7 to 8 mm left renal calculus. Pain was difficult to control. No evidence of infection. No contraindications to proceeding with treatment. She elected endoscopic treatment over ESWL and is admitted today for that procedure. There have been no significant changes since she was evaluated in the clinic 2 days ago. Pain is better controlled today. Preoperative KUB confirmed stone in roughly the same position as well as the renal calculus in the same position. I went over the details of the procedure with expectations prepost and intraoperatively. Discussed stent versus no stent. Reviewed the potential possibility that the stone would be inaccessible with retrograde approach via ureteroscopy and if that was the case a stent would be left indwelling either for passive dilation and reattempted endoscopy or conversion to ESWL when available. We also discussed potentially treating the left kidney stone if access is good and the proximal ureteral stone is readily treated. She asked appropriate questions. She seemed content with my answers. We reviewed benefits risk potential complications alternatives in detail and she expressed desire to proceed as previously planned. Informed consent was obtained. 08/26/2021: UROLOGY INITIAL visit (CR) Summary of outside records: [facility] emergency department (08/22/2021) Presented with 2-day history of left-sided back pain, denied radiation. No complaints of dysuria, frequency, or urgency but noticed her urine to be brown in color. No history of stones. WBC: 7.5. BUN: 11. Creatinine: 1.0. UA: 10-15 WBCs, too numerous to count RBCs, nitrite negative. CT scan: Mildly obstructing 7 mm Proximal left ureteral calculus, additional nonobstructing bilateral renal calculi. Discharged with prescriptions for hydrocodone, Zofran, and Flomax. Current data Additional history: No prior history of stones. No history of recurrent UTIs. Has been straining her urine and denies passage of stone. Complains of left mid back/flank pain and nausea. She feels that her left mid back pain radiates some to her right low back. UA:5-15 RBCs, nitrite negative. KUB: there is a calcification in the area where the stone was located on CT scan. Physical findings: left CVA tenderness, right paraspinous muscle tenderness. Discussion: Stone appears to be in the same location as seen on CT scan. She continues to remain symptomatic. Reviewed conservative management versus surgical intervention, she wants to proceed with surgical intervention. Information reviewed with Dr. Ley. Consent obtained for cystoscopy, Left: retrograde, ureteroscopy, laser, stent; risks, benefits, and alternatives were reviewed. Encouraged her to continue straining her urine. She has not been taking the TAMSULOSIN, encouraged her to do so. Using HYDROCODONE and ZOFRAN as needed. Plan: Outpatient surgery on 08/28/2021. Review of Systems Const: Reports: chills; Denies: fever(s) Eyes: Denies: change in vision ENMT: Denies: change in hearing Card: Reports: chest pain Resp: Denies: dyspnea or productive cough GI: Reports: abdominal pain and constipation : Reports: flank pain and urinary urgency; Denies: urinary frequency Musc: Reports: back pain Skin/Breast: Denies: rash or pruritus Neuro: Denies: seizure-like activity Psych: Reports: anxiety; Denies: depression Endo: Denies: flushing Car/Lymph: Denies: easy bruising or easy bleeding All/Imm: Denies: urticaria or acute wheezing Medications/Allergies Home Medications Medication Instructions Recorded Confirmed Last Taken Type hydrocodone-acetaminophen 1 tab PO Q6H PRN #15 tab 08/22/21 08/27/21 Unknown Rx ondansetron HCl [Zofran] 4 mg PO Q6H PRN #14 tab 08/22/21 08/27/21 Unknown Rx tamsulosin [Flomax] 0.4 mg PO DAILY #10 cap 08/22/21 08/27/21 Unknown Rx Allergies Allergy/AdvReac Type Severity Reaction Status Date / Time No Known Allergies Allergy Verified 08/27/21 15:19 PFSH PFSH: Surgical History (Updated 08/28/21 @ 08:53 by Daniel Ley MD) History of delivery History of plastic surgery Facial plastic surgery as a child Family History Father Healthy adult Mother Healthy adult Social History Smoking and tobacco status: never smoked Alcohol intake: never Marital status: Current occupational status: employed History of recent travel: No Female Reproductive History: Date of last menstrual period: 01/06/21 Vital Signs Weight: Weight last 48 hrs Weight 240 lb Physical Exam Const: COMMON NORMALS: no acute distress and patient oriented x3 GENERAL APPEARANCE: cooperative HENMT: COMMON NORMALS: normocephalic and atraumatic HEAD & SCALP: normocephalic and atraumatic Eye: COMMON NORMALS: no scleral icterus GENERAL EYE: appearance normal, both eyes and all related structures Neck/C-Spine: COMMON NORMALS: full ROM and No carotid bruits GENERAL: Yes normal visual inspection Lymph: LYMPHATIC: no lymphedema noted Resp: COMMON NORMALS: normal respiratory effort and clear to auscultation bilaterally EFFORT & INSPECTION: Yes able to speak in complete sentences and No labored AUSCULTATION: clear to auscultation bilaterally Cardio: COMMON NORMALS: regular rate and regular rhythm RATE: regular rate RHYTHM: regular rhythm GI: COMMON NORMALS: Soft to palpation and non-tender : BLADDER/KIDNEY EXAM: Yes CVA tenderness Back/Pelvis: GENERAL BACK: Yes CVA tenderness CVA tenderness: left LUMBAR SPINE/LOWER BACK: Yes paraspinal muscle tenderness (low back) Lumbar paraspinal muscle tenderness: right Extremity: OTHER: no lower extremity edema Neuro: COMMON NORMALS: patient oriented x3 SPEECH: speech normal GAIT: Yes Normal gait present Psych: COMMON NORMALS: Normal thought process present ATTITUDE: Yes calm MOOD & AFFECT: No anxious THOUGHT PROCESS: Normal thought process present Skin: COMMON NORMALS: no rashes or lesions noted and no jaundice A&P Assessment and plan (1) Calculus of proximal left ureter: 7 mm left proximal ureteral stone showing no evidence of further progression since diagnosis. Having intermittent severe renal colicky symptoms. Elected endoscopic treatment rather than waiting for ESWL. She also has a left renal calculus. Proceed as planned with left endoscopic treatment of the stone and if possible under the same study treat the left renal calculus as well. Status: Acute (2) Calculus of left kidney: Status: Acute Coding Level of Care Code Acute [facility] Diagnoses Calculus of proximal left ureter N20.1 Calculus of left kidney N20.0
[2021-08-28] MEDS: sodium chloride 0.9% 1,000 ML 30 ML IV (09:13)
[2021-08-28 09:28] LABS: OR HCG Qualitative Urine Negative (Negative)
--- NOTE | 2021-08-28 09:42 | ANES.PREANE2 ---
Pre-Anesthetic Assessment Pre-Anesthetic Assessment: Height/Weight: Height 1.6 m Weight 108.862 kg Temp Pulse Resp BP Pulse Ox 97.5 F L 82 18 129/86 98 08/28/21 08:51 08/28/21 08:51 08/28/21 08:51 08/28/21 08:51 08/28/21 08:51 Preop Diagnosis: Refractory symptomatic left mid ureteral stone Proposed Procedure: Operation Date: 08/28/21 09:15 Proposed Procedures p Cystoscopy [id number] mod 26/n20.1/m20.0(Not Applicable) - Daniel Ley MD s Retrograde Pyelogram(Left) - MD alison Ambrosio Ureteroscopy(Left) - Daniel Ley MD s Laser Lithotripsy(Left) - Daniel Ley MD s Ureteral Stent Placement(Left) - Daniel Ley MD Familial anesthetic complications: none Last intake: Intake Last Liquid Date 08/27/21 Last Liquid Time 22:00 Last Solid Date 08/27/21 Last Solid Time 22:00 Social: Social History: No alcohol and No tobacco Exam: Pre-Anes Outpt Exam: alert, oriented x 3, clear to auscultation bilaterally and regular rate & rhythm Airway: Cervical ROM: WNL MP: 1 Dentition: Chipped (front tooth,k broknen bottom) Metabolic: Metabolic: Morbid obesity Anesthetic Plan: ASA status: 2 Anesthesia: General Risk of > 500 ml blood loss (7ml/kg in children): No Medications/Allergies Current Medications: Current Medications Generic Name Dose Route Start Last Admin Trade Name Freq PRN Reason Stop Dose Admin Sodium Chloride 1,000 mls @ 30 ml s/hr 08/28/21 08:15 08/28/21 09:13 Sodium Chloride 0.9% IV 08/29/21 08:14 30 mls/hr .Q24H ANGELINA Administration PFSH Anesthesia PFSH: Surgical History (Updated 08/28/21 @ 08:53 by Daniel Ley MD) History of delivery History of plastic surgery Facial plastic surgery as a child Family History Father Healthy adult Mother Healthy adult Social History Smoking and tobacco status: never smoked Alcohol intake: never Marital status: Current occupational status: employed History of recent travel: No Female Reproductive History: Date of last menstrual period: 01/06/21 Data Anesthesia Other Labs: Laboratory Results - last 48 hr 08/28/21 08:21 Urine HCG, Qual Negative Cardiac Studies: No Data to Display
[2021-08-28] MEDS: levofloxacin-dextrose 5 % 500 MG/100 ML PREMIX 100 MG IV (10:10)
--- NOTE | 2021-08-28 10:10 | P.OP_ITS ---
Operative Report Date of procedure: August 28, 2021 Pre-op Diagnosis: Refractory symptomatic left mid ureteral stone Post-op Diagnosis: Refractory symptomatic left mid ureteral stone Procedure Done: 1. Cystoscopy, left retrograde ureteropyelogram 2. LEFT: Ureteroscopy, laser lithotripsy left proximal ureteral stone 3. LEFT: Renoscopy, laser lithotripsy left lower pole additional stone Implants: Left ureteral stent Surgeon: Jil Anesthesia: General Estimated blood loss: Minimal Urine output: Not measured Complications: None Condition: stable Disposition: PACU Brief History: Massiel is a very pleasant 25-year-old white female recently diagnosed with a very symptomatic left proximal ureteral stone with obstructive changes on CT scan in the absence of UTI. Ultimately because of the persistence of symptoms and lack of progression she elected to proceed with endoscopic treatment. Alternatives of ESWL were discussed. She is admitted today for ureteroscopic laser lithotripsy of left proximal ureteral stone but if access is not easily obtained then a stent placement for passive dilation and relief of obstruction. She also is known to have a larger left renal pelvic stone and we discussed the possibility of treating that stone if the ureteral stone was easily accessible and treatable and access to the left kidney was good. Preoperative KUB confirmed the stone was in roughly the same position Procedure: After routine preoperative evaluation examination and obtaining of informed consent she was taken to the operating suite on August 28, 2021 where general anesthesia was administered without difficulty after appropriate timeout was performed, SCDs confirmed to be functioning, preoperative antibiotics administered, beta-lucy protocol confirmed. Prepped and draped in the usual sterile fashion in dorsolithotomy position paying careful attention to avoiding pressure points. 21 Albanian cystoscope with 30 degree lens was introduced into the urethra meatus and advanced into the bladder to videoscopy. The bladder was systematically examined and found to be within normal limits. An 8 Albanian cone-tip catheter was intubated to the left ureteral orifice for left retrograde ureteropyelogram which confirmed a filling defect consistent with a stone seen on prior imaging in the proximal ureter. The left renal stone was also seen. There is no other gross abnormality identified. A flexible tip guidewire was then advanced up the left ureter bypassing the stone and curling in the upper pole calyx. The distal ureter was then dilated with a 15 Albanian 4 cm balloon. The safety wire was secured to the drapes. A second guidewire was then passed into the kidney and a 24 cm ureteral access sheath was advanced over the working guidewire to the hub. A flexible ureteroscope was then advanced up the ureteral access sheath to the level of the stone which was easily accessible. The stone was fragmented with a 365 ?m thulium superpulse laser fiber utilizing dusting technique. No large fragments remained and generally the residual was sand. The scope was then passed up into the kidney and the previously identified stone was found in one of the mid/lower pole calyces and treated in the same fashion with same results. No large fragments remained. Careful inspection of all the calyces was then conducted and no further large stone fragments could be found. The access sheath was backed down to the hub of the scope and the scope was slowly withdrawn and the ureter was carefully examined. No other stone fragments of any consequence were identified. The ureter was intact without significant trauma. Cystoscope was then backloaded over the guidewire and a 6 Albanian by 24 cm double-pigtail stent was advanced over the guidewire through the cystoscope into appropriate position as confirmed via fluoroscopy and cystoscopy. No string. The bladder was drained and the procedure was completed. She tolerated the procedure well without complications and was awakened in the operating room and returned to the recovery room in stable condition PLANS: 1. Anticipate discharge from outpatient surgery today 2. Follow-up in 1 week for cystoscopy and stent removal.
--- NOTE | 2021-08-28 11:09 | SUR.OPER ---
OMNIPAQUE 300MGI/ML 50ML ADDED TO STERILE FIELD. 19ML USED. 31 ML WASTED
[2021-08-28] MEDS: diphenhydrAMINE 50 mg/mL SDV 1mL (11:52)
[2021-08-28] MEDS: ondansetron 2 mg/ML SDV 2 mL 4 MG IVP (11:52)
[2021-08-28] MEDS: fentaNYL 50 mcg/mL INJ 2mL IVP (12:12)
--- NOTE | 2021-08-28 14:15 | ANE.PACU2 ---
Inpatient post-anesthesia follow up: Airway intact: Yes Vital signs: Temperature 97.2 F Pulse Rate 69 Respiratory Rate 18 Blood Pressure 112/84 Pulse Oximetry 93 Oxygen Delivery Me thod Room Air Oxygen Flow Rate Fraction of Inspir ed Oxygen Hydration adequate: Yes Nausea and vomiting: Yes Pain level: 2 Mental status: Baseline
== END 2021-08-28 13:43 | disposition home or self-care (01) ==
PROVIDERS: Anesthesiology; PCP Nurse Practitioner Family; Visit Provider Urology
PROC: 0TJB8ZZ Inspection of Bladder, Via Natural or Artificial Opening Endoscopic (ICD-10-PCS; CPT 52000; principal; 2021-08-28 09:05)
PROC: (CPT 74420; 2021-08-28 09:05)
PROC: 0TJ98ZZ Inspection of Ureter, Via Natural or Artificial Opening Endoscopic (ICD-10-PCS; CPT 52351; 2021-08-28 09:05)
PROC: (CPT 52356; 2021-08-28 09:05)
PROC: (CPT 50605; 2021-08-28 09:05)
DX: N20.1 Calculus of ureter (principal); E66.01 Morbid (severe) obesity due to excess calories; Z68.41 Body mass index [BMI] 40.0-44.9, adult
CPT/HCPCS: 52356; 74018; 76000; 81025; 84703; C2625; J1100; J1200; J1956; J2405; J2704; J2710; J3010; J3490; J7030

== ENCOUNTER 2021-09-06 11:16 | Outpatient (CLI) | payer BC, MEDICAID, SELFPAY ==
--- NOTE | 2021-09-06 11:30 | XRR_ITS ---
PROCEDURE INFORMATION: Exam: XR Abdomen Exam date and time: 09/06/2021 11:30 AM Age: 25 years old Clinical indication: Stent in left kidney with mild discomfort. Urolithiasis. TECHNIQUE: Imaging protocol: XR of the abdomen. Views: Frontal supine view of the abdomen. 1 View. COMPARISON: CR XR KUB [id number] 08/28/2021 8:18 AM FINDINGS: Tubes, catheters and devices: A left ureteral stent is noted. Gastrointestinal tract: Nonobstructive bowel gas pattern. Intraperitoneal space: No gross free air. Organs: No definite renal or ureteral stones are seen. Vasculature: No portal venous gas is seen. Bones/joints: No gross acute fracture is seen. Other findings: Hepatosplenomegaly. XR/XR KUB [id number] IMPRESSION: 1. A left ureteral stent is noted. 2. No definite renal or ureteral stones are seen. 3. Hepatosplenomegaly.
== END 2021-09-06 11:17 | disposition home or self-care (01) ==
PROVIDERS: Visit Provider Urology
DX: N20.9 Urinary calculus, unspecified (principal); Z96.0 Presence of urogenital implants; R16.2 Hepatomegaly with splenomegaly, not elsewhere classified
CPT/HCPCS: 74018; 87635

== ENCOUNTER 2021-09-11 08:09 | Day surgery (SDC) | payer BC, MEDICAID, SELFPAY ==
[2021-09-10 15:54] VITALS: BMI 42.5
--- NOTE | 2021-09-11 | SCC_ITS ---
Procedure done: Cystoscopy, left ureteroscopy with stent extraction. 10.2 seconds of fluoroscopic guidance, for a cumulative dose of 3.0 mGy, was provided to Dr. Ley by the radiology department. C-arm images of the abdomen were saved for the patient's permanent record. HUBERD
--- NOTE | 2021-09-11 08:28 | SC_ITS ---
WS: [id number] INTRAOPERATIVE TECHNIQUE: 2 Spot fluoroscopic images for intraoperative purposes. FLUOROSCOPY TIME: 10.2 seconds CLINICAL INFORMATION: Retained ureteral stent COMPARISON: None. FINDINGS: Intraoperative imaging utilized for left ureteroscopy with left stent exchange or removal. SC/C-arm FL for Urology IMPRESSION: Images obtained for intraoperative purposes.
--- NOTE | 2021-09-11 08:39 | ANES.PREANE2 ---
Pre-Anesthetic Assessment Height/Weight: Height 1.6 m Weight 108.862 kg Preop Diagnosis: Retained left ureteral stent with proximal migration Operation Date: 09/11/21 09:45 Proposed Procedures p Cystoscopy(Not Applicable) - MD alison Ambrosio Ureteral Stent Removal(Left) - MD JL Ambrosio Urolithiasis Medications/Allergies Home Medications Medication Instructions Recorded Confirmed Last Taken Type ondansetron HCl 4 mg tablet 4 mg PO Q6H PRN #14 tab 08/22/21 09/10/21 08/28/21 Rx (Zofran) tamsulosin 0.4 mg capsule (Flomax) 0.4 mg PO DAILY #10 cap 08/22/21 09/10/21 08/27/21 Rx ibuprofen 200 mg capsule 200 mg PO Q6H PRN 09/06/21 09/10/21 Unknown History acetaminophen 500 mg PO PRN PRN 09/11/21 09/11/21 09/10/21 History Allergies Allergy/AdvReac Type Severity Reaction Status Date / Time No Known Allergies Allergy Verified 09/10/21 15:53 PFSH Anesthesia Medical History Urolithiasis Surgical History History of delivery History of plastic surgery Facial plastic surgery as a child Status post laser lithotripsy of ureteral calculus Ureteral and left renal calculi August 2021 Family History Father Healthy adult Mother Healthy adult Social History Smoking and tobacco status: never smoked Alcohol intake: never Marital status: Current occupational status: employed History of recent travel: No Female Reproductive History Date of last menstrual period: 01/06/21 Data Anesthesia Cardiac Studies: No Data to Display
[2021-09-11 08:40] VITALS: BP 100/75; PULSE 74; RESP 18; TEMP 36.8; O2SAT 100
[2021-09-11] MEDS: sodium chloride 0.9% 1,000 ML 30 ML IV (08:47)
--- NOTE | 2021-09-11 08:59 | ANES.PREANE2 ---
Pre-Anesthetic Assessment Height/Weight: Height 1.6 m Weight 108.862 kg Preop Diagnosis: Retained left ureteral stent with proximal migration Operation Date: 09/11/21 09:45 Proposed Procedures p Cystoscopy(Not Applicable) - Daniel Ley MD s Ureteral Stent Removal(Left) - Daniel Ley MD Familial anesthetic complications: None Was Beta Bouchra taken within 24 hours: N/A Was Clonidine taken within 24 hours: N/A Social No alcohol and No tobacco Exam alert, oriented x 3, clear to auscultation bilaterally and regular rate & rhythm Airway Cervical ROM: within normal limits Mallampati: Class III Dentition: chipped Metabolic Morbid Obesity Anesthetic Plan ASA status: 2 Anesthesia: General Medications/Allergies Home Medications Medication Instructions Recorded Confirmed Last Taken Type ondansetron HCl 4 mg tablet 4 mg PO Q6H PRN #14 tab 08/22/21 09/10/21 09/06/21 Rx (Zofran) tamsulosin 0.4 mg capsule (Flomax) 0.4 mg PO DAILY #10 cap 08/22/21 09/10/21 09/06/21 Rx ibuprofen 200 mg capsule 200 mg PO Q6H PRN 09/06/21 09/10/21 09/09/21 History acetaminophen 500 mg PO PRN PRN 09/11/21 09/11/21 09/10/21 History Allergies Allergy/AdvReac Type Severity Reaction Status Date / Time No Known Allergies Allergy Verified 09/10/21 15:53 PFSH Anesthesia Medical History Urolithiasis Surgical History History of delivery History of plastic surgery Facial plastic surgery as a child Status post laser lithotripsy of ureteral calculus Ureteral and left renal calculi August 2021 Family History Father Healthy adult Mother Healthy adult Social History Smoking and tobacco status: never smoked Alcohol intake: never Marital status: Current occupational status: employed History of recent travel: No Female Reproductive History Date of last menstrual period: 01/06/21 Data Anesthesia Cardiac Studies: No Data to Display
[2021-09-11 10:10] LABS: OR HCG Qualitative Urine Negative (Negative)
--- NOTE | 2021-09-11 11:51 | W.PM.OPSUD ---
Surgery/Procedure H&P Update DATE OF PROCEDURE: September 11, 2021 DATE H&P PERFORMED: 09/06/21 H&P UPDATE INFORMATION: I have reviewed H&P completed within last 30 days, I have examined patient prior to procedure, No changes to prior documentation and H&P is in [facility] EMR on date indicated PREOP DIAGNOSIS: Retained left ureteral stent with proximal migration PLANNED PROCEDURE: Operation Date: 09/11/21 09:45 Proposed Procedures p Cystoscopy(Not Applicable) - Daniel Ley MD s Ureteral Stent Removal(Left) - Daniel Ley MD
--- NOTE | 2021-09-11 11:52 | PM.OP ---
Operative Report Date of procedure: September 11, 2021 Pre-op diagnosis: Preop Diagnosis Retained left ureteral stent with proximal migration Post-op diagnosis: Retained left ureteral stent with proximal migration Procedure done: Cystoscopy, left ureteroscopy with stent extraction. Specimens removed/disposition: Left ureteral stent Pathology: None Surgeon: Jil Estimated blood loss: None Urine output: Not measured Complications: None Findings: Stent position in the very distal ureter. Ureteroscope was easily passed up to the stent which was secured in grasping forceps and removed. No significant trauma. Brief History: Massiel is a delightful 25-year-old white female who was recently diagnosed with obstructing left proximal ureteral stone with failure to pass. She also is known to have a larger left lower pole stone. Ultimately she elected treatment of the ureteral stone at the same setting after fragmentation the ureteral stone with laser lithotripsy flexible scope was passed up into the kidney and that additional kidney stone was treated. On follow-up imaging there were no obvious residual stone fragments of consequence but her stent had migrated proximally. This was quite a surprise given the patient's height of 5 foot 3 inches and using a 24 cm stent. The distal aspect of the stent was just inside the ureteral orifice and could not be retrieved in the clinic via flexible cystoscopy and for that reason she was brought to the operating room today for stent extraction. Procedure: After routine preoperative evaluation examination and obtaining of informed consent she was taken to the operating suite on September 11, 2021 where general anesthesia was administered without difficulty after appropriate timeout was performed, SCDs confirmed to be functioning, preoperative antibiotics administered, beta-lucy protocol confirmed. Prepped and draped in usual sterile fashion in dorsolithotomy position paying careful attention to avoiding pressure points. 21 Paraguayan cystoscope with 30 degree lens was introduced into the urethra meatus and advanced into the bladder under videoscopy. Again the stent was confirmed to not be emanating from the orifice. A 7 Paraguayan offset semirigid ureteroscope was then advanced into the bladder and easily up the left ureter where the stent was encountered just inside the intramural tunnel. A [employer] stone retrieval basket was utilized, stent was secured and withdrawn without tension. Repassage of the scope showed no significant trauma. No stent was left indwelling. Bladder was drained at the completion procedure. She was awakened in the operating room and returned to the recovery room in stable condition PLANS: 1. Anticipate discharge from outpatient surgery 2. Follow-up in 6 months with ALETHEA
[2021-09-11] MEDS: levofloxacin-dextrose 5 % 500 MG/100 ML PREMIX 100 MG IV (12:03)
[2021-09-11 12:41] VITALS: BP 121/69; PULSE 105; RESP 20; TEMP 36.1; O2SAT 96
[2021-09-11 12:46] VITALS: BP 125/90; PULSE 80; RESP 18; O2SAT 99
[2021-09-11 12:51] VITALS: BP 120/78; PULSE 78; RESP 20; TEMP 36.1; O2SAT 98
[2021-09-11 13:00] VITALS: BP 122/86; PULSE 76; RESP 18; TEMP 36.1; O2SAT 99
--- NOTE | 2021-09-11 13:00 | ANE.PACU2 ---
Inpatient post-anesthesia follow up: Airway intact: Yes Vital signs: Temperature 97.0 F Pulse Rate 78 Respiratory Rate 20 Blood Pressure 120/78 Pulse Oximetry 98 Oxygen Delivery Me thod Room Air Oxygen Flow Rate Fraction of Inspir ed Oxygen Hydration adequate: Yes Nausea and vomiting: No Pain level: 1 Mental status: Baseline
[2021-09-11 13:23] VITALS: BP 123/77; PULSE 72; RESP 18; O2SAT 99
== END 2021-09-11 13:39 | disposition home or self-care (01) ==
PROVIDERS: Anesthesiology; Visit Provider Urology
PROC: 0TJB8ZZ Inspection of Bladder, Via Natural or Artificial Opening Endoscopic (ICD-10-PCS; CPT 52000; principal; 2021-09-11 09:35)
PROC: (CPT 52310; 2021-09-11 09:35)
PROC: 0TJ98ZZ Inspection of Ureter, Via Natural or Artificial Opening Endoscopic (ICD-10-PCS; CPT 52351; 2021-09-11 09:35)
DX: T83.122A Displacement of indwelling ureteral stent, initial encounter (principal); E66.01 Morbid (severe) obesity due to excess calories; Z68.41 Body mass index [BMI] 40.0-44.9, adult
CPT/HCPCS: 52310; 76000; 81025; 84703; J1100; J1956; J2405; J2704; J3010; J3490; J7030

== ENCOUNTER 2021-10-25 21:38 | Emergency (ER) | payer BC, MEDICAID, SELFPAY ==
[2021-10-25 21:47] VITALS: BP 132/87; PULSE 75; RESP 18; TEMP 36.6; O2SAT 100; BMI 42.3
--- NOTE | 2021-10-25 22:39 | ED_ITS ---
HPI - Animal Bite General: Chief Complaint: Animal Bite Stated Complaint: Dog bite on leg Time Seen by Provider: 10/25/21 22:10 History of Present Illness: Patient is a 25-year-old female that comes to the ED with multiple complaints. She is complaining of a dog bite to her right low er leg and headache. One complaint is that she was bitten by a small dog yesterday on her right lower calf. She has a small puncture wound with bruising around it. Dog was fully vaccinated including rabies vaccination. After dog bite patient cleaned out wound extensively at home. Patient's other complaint is a headache that started today while at work. She also experienced some tunnel vision in her left eye during acute headache. She says it came on really sharp and originally was rated a 9 out of 10 and she had a little bit of nausea as well. She is taken some Tylenol today and it did help the headache some. She now rates it a 6 out of 10. She reports that bright lights worsened headache as well. Patient is up-to-date on her tetanus. Denies any chance of being currently. Says her last menstrual period was on October 12. Associated symptoms: Reports headache(s); Deny chills or fever(s) Review of Systems Const: Denies: fever(s), chills or fatigue Eyes: Reports: change in vision (Left eye had some tunnel vision and blurriness) and photophobia; Denies: blurry vision or eye discomfort ENMT: Denies: throat pain, odynophagia, nasal discharge or nasal congestion Card: Denies: chest pain, palpitations, edema, swelling of feet/ankles, dyspnea on exertion or orthopnea Resp: Denies: dyspnea, productive cough or non-productive cough GI: Denies: abdominal pain, nausea, vomiting, diarrhea, constipation or hematochezia : Denies: flank pain, dysuria or hematuria Musc: Denies: neck pain, back pain or extremity swelling Skin/Breast: Reports: new lesions (dog bite to Right calf); Denies: rash Neuro: Reports: headache(s); Denies: numbness in extremities or weakness in extremities PFSH ED PFSH: Medical History Urolithiasis Surgical History History of delivery History of plastic surgery Facial plastic surgery as a child Status post laser lithotripsy of ureteral calculus Ureteral and left renal calculi August 2021 Family History Father Healthy adult Mother Healthy adult Social History Smoking and tobacco status: never smoked Alcohol intake: never Marital status: Current occupational status: employed History of recent travel: No Female Reproductive History: Date of last menstrual period: 01/06/21 Physical Exam Const: COMMON NORMALS: no acute distress, patient oriented x3 and alert HENMT: COMMON NORMALS: normocephalic HEAD & SCALP: normocephalic MOUTH: Normal oral and palatal mucosa present THROAT: posterior oropharynx normal a nd uvula midline Eye: COMMON NORMALS: Equal, round and reactive pupils present and conjunctivae normal CONJUNCTIVA: Yes conjunctivae normal PUPIL: Yes Equal, round and reactive pupils present Neck/C-Spine: COMMON NORMALS: supple GENERAL: Yes normal visual inspection Resp: COMMON NORMALS: normal respiratory effort, No retractions, No use of accessory muscles and clear to auscultation bilaterally AUSCULTATION: clear to auscultation bilaterally Cardio: COMMON NORMALS: regular rate, regular rhythm, S1 normal heart sound present, S2 normal heart sound present, No gallops present (Cardio), No clicks present (Cardio), No murmurs present (Cardio) and Peripheral pulses 2+ thro ughout RATE: regular rate RHYTHM: regular rhythm HEART SOUNDS: S1 normal heart sound present and S2 normal heart sound present PERIPHERAL PULSES: Peripheral pulses 2+ throughout GI: COMMON NORMALS: Normal to inspection, nondistended, normoactive bowel sounds present, Soft to palpation, non-tender and no masses PALPATION: Yes Soft to palpation : COMMON NORMALS: Yes no CVA tenderness BLADDER/KIDNEY EXAM: Yes no CVA tenderness Back/Pelvis: COMMON NORMALS: no CVA tenderness Extremity: COMMON NORMALS: normal to inspection Neuro: COMMON NORMALS: patient oriented x3, CN's II-XII intact bilaterally, moves all extremities, no focal motor deficits and no sensory deficits noted SENSORIUM/ORIENTATION: Yes alert SENSORY EXAM: Yes extremities (intact) MOTOR EXAM: 5/5 motor strength present throughout Skin: NARRATIVE SKIN EXAM: Right calf-small puncture wound with some surrounding ecchymosis. No erythema or warmth noted. No purulent drainage seen. GENERAL SKIN EXAM: dry skin Course Reevaluation(s): Reevaluation #1: Patient's headache improved after getting IM Toradol here in the ED. Time: 23:45 Vital Signs: Vital signs: Vital Signs Temperature 98 F 10/25/21 21:47 Pulse Rate 75 10/25/21 21:47 Respiratory Rate 18 10/25/21 21:47 Blood Pressure 132/87 10/25/21 21:47 Pulse Oximetry 100 10/25/21 21:47 MDM - Animal Bite Medical Decision Making Patient is a 25-year-old female comes to the ED with multiple complaints. She has a dog bite to her right calf and a headache. Dog bite occurred yesterday and patient says dog was fully vaccinated including rabies vaccination. She is up-to-date on her tetanus. After dog bite she cleaned wound extensively at home. Headache started today and she describes having some left eye blurriness. Endorses worsening headache with light. Denies any history of migraines. Vitals are stable. Patient appears in no acute distress or pain. She has a small puncture wound to right calf with some surrounding ecchymosis. No signs of infection seen. Rest of exam is benign. CT of head showed no acute findi ngs. She was given a dose of Toradol here in the ED to help with headache and headache did improve. Patient was diagnosed with a dog bite and a headache. She was discharged home with a prescription for Augmentin. Told to follow-up with PCP in 5 to 7 days for reevaluation. Return to ED precautions given. Patient understood and agreed with plan. Lab Data Radiology Impressions Head CT 10/25/21 22:40 IMPRESSION: 1. No acute intracranial hemorrhage or mass effect. 2. Other findings discussed above. Discharge Plan Discharge Patient Disposition: Home Clinical Impression: Dog bite Qualifiers: Encounter type: initial encounter Qualified Code(s): W54.0XXA - Bitten by dog, initial encounter Headache Qualifiers: Headache type: unspecified Headache chronicity pattern: acute headache Intractability: not intractable Qualified Code(s): R51.9 - Headache, unspecified Condition: Stable Prescriptions: New Augmentin 500-125 mg tablet 1 tab PO BID 7 Days Qty: 14 0RF No Action ibuprofen 200 mg capsule 200 mg PO Q6H PRN (Reason: Pain) 0RF ondansetron HCl [Zofran] 4 mg tablet 4 mg PO Q6H PRN (Reason: nausea and vomiting) Qty: 14 0RF tamsulosin [Flomax] 0.4 mg capsule 0.4 mg PO DAILY Qty: 10 0RF acetaminophen 500 mg PO PRN PRN (Reason: Pain, Mild) 0RF Discharge Orders: Discharge ED (Routine); Ordered 10/25/21 Ordered By: Foster Vega Discharge Diet: Regular Discharge Activity: Increase activity as tolerated Patient Instructions: Animal Bite (ED), Acute Headache (ED) Activity Restrictions/Additional Instructions: Follow-up with medical provider as directed in the next 7 to 10 days for reevaluation. Take medications as prescribed. Return to the ER or your medical provider if condition worsens. Please read and understand discharge instructions. Thank you for choosing [facility] for your healthcare needs today. Shelby odonnell realize this is an emergency room and that we are providing you with a medical screening exam and this may not be complete and all inclusive of all the testing and or work up that you may need to determine your ailment or severity of your illness. It is very important that you follow up as instructed or that you return to the Emergency Department should you have concerns or if your condition changes or worsens in any way. Coding Level of Care Code ED Chemistry Manager for Mahesh Goddard Exam Comprehensive
--- NOTE | 2021-10-25 22:40 | CTR_ITS ---
PROCEDURE INFORMATION: Exam: CT Head Without Contrast Exam date and time: 10/25/2021 10:51 PM Age: 25 years old Clinical indication: Pain; Headache; Patient HX: C/O migraine. ; Additional info: First migraine like headache TECHNIQUE: Imaging protocol: Computed tomography of the head without contrast. Radiation optimization: All CT scans at this facility use at least one of these dose optimization techniques: automated exposure control; mA and/or kV adjustment per patient size (includes targeted exams where dose is matched to clinical indication); or iterative reconstruction. COMPARISON: CT head wo con* [id number] 07/25/2020 1:54 PM RADIATION DOSE METRICS: Total DLP (mGy-cm): 806.71 FINDINGS: Brain: No acute intracranial hemorrhage or mass effect. No definite acute infarct by CT. Cerebral ventricles: Ventricle size is normal for age. Paranasal sinuses: Included paranasal sinuses are essentially clear. Mastoid air cells: No significant acute finding. Bones/joints: No definite acute skull fracture. Soft tissues: No significant acute finding. CT/CT head wo con* [id number] IMPRESSION: 1. No acute intracranial hemorrhage or mass effect. 2. Other findings discussed above.
[2021-10-25] MEDS: ketorolac 60 mg/2 mL INJ IM (23:00)
== END 2021-10-25 23:33 | disposition home or self-care (01) ==
PROVIDERS: Emergency Provider Physician Assistant
DX: S81.851A Open bite, right lower leg, initial encounter (principal); W54.0XXA Bitten by dog, initial encounter; R51.9 Headache, unspecified
CPT/HCPCS: 70450; 96372; 99283; J1885

== ENCOUNTER 2023-09-06 16:13 | Emergency (ER) | payer BC, MEDICAID, SELFPAY ==
[2023-09-06 16:20] VITALS: BP 113/78; PULSE 83; RESP 18; TEMP 37.1; O2SAT 98; BMI 44.2
--- NOTE | 2023-09-06 16:30 | XRR_ITS ---
PROCEDURE INFORMATION: Exam: XR Right Foot Exam date and time: 09/06/2023 4:38 PM Age: 27 years old Clinical indication: Injury or trauma; Other: Puncture; Foot; Right; Foreign body involvement not specified; Additional info: Puncture wound TECHNIQUE: Imaging protocol: Radiologic exam of the right foot. Views: 3 or more views. COMPARISON: CR (LOW EXM, ) 02/03/2021 10:21 PM FINDINGS: Bones/joints: Normal. Soft tissues: Normal. XR/XR foot RT min 3V* [id number] IMPRESSION: No acute findings.
--- NOTE | 2023-09-06 16:31 | ED_ITS ---
HPI - Extremity Problem General: Chief complaint: Extremity Injury, Lower Stated complaint: stepped on nails on right foot, 37 weeks preg Time Seen by Provider: 09/06/23 16:17 History of Present Illness: 27-year-old female comes in today for co mplaints of injury to the right foot so le. Patient with left posterior wound which is still on the border of 2 nail. Patient has injury to the right foot. Patient is 37 weeks . Patient's tetanus was updated in July. Patient appears in mild to moderate pain. Patient appears nontoxic. Review of Systems General: Reports: 10 or more systems reviewed and unremarkable except in HPI and below Skin/Breast: Reports: new lesions PFSH ED PFSH: Medical History Urolithiasis Surgical History History of delivery History of plastic surgery Facial plastic surgery as a child Status post laser lithotripsy of ureteral calculus Ureteral and left renal calculi August 2021 Family History Father Healthy adult Mother Healthy adult Social History Smoking and tobacco/nicotine status: never used tobacco/nicotine Alcohol intake: never Substance/Drug Use: never Marital status: Current occupational status: employed Physical Exam Const: COMMON NORMALS: alert HENMT: COMMON NORMALS: normocephalic HEAD & SCALP: normocephalic Neck/C-Spine: COMMON NORMALS: full ROM Resp: COMMON NORMALS: normal respiratory effort Cardio: COMMON NORMALS: regular rate RATE: regular rate Back/Pelvis: COMMON NORMALS: thoracic and lumbar spine normal to inspection Extremity: RIGHT LOWER EXTREMITY: Yes foot & digits (2 small puncture wounds to the ball of the foot) Right foot and digits: Yes inspection, Yes palpation and Yes ROM Neuro: SENSORIUM/ORIENTATION: Yes alert Skin: TRAUMA: puncture (Right shoulder foot) Course Vital Signs: Vital signs: Vital Signs Temperature 98.7 F 09/06/23 16:20 Pulse Rate 83 09/06/23 16:20 Respiratory Rate 18 09/06/23 16:20 Blood Pressure 113/78 09/06/23 16:20 Pulse Oximetry 98 09/06/23 16:20 Oxygen Delivery Me thod Room Air 09/06/23 16:20 MDM - Extremity (Nontraumatic) Medical Decision Making 27-year-old female comes in today with injury to the right foot. Patient has 2 puncture wounds to the sole of the foot. Pulses are intact. No significant bleeding or bruising is noted. Patient appears nontoxic. Differential diagnosis includes foreign body, fracture, puncture wound. Patient was medicated with Augmentin. Patient wound was cleaned and antibiotic ointment was applied. X-ray of the foot noted no bony abnormality or foreign body. Reviewed exam with patient with recommendations for treatment and follow-up. Patient reported understanding agreed to plan. XR interpretation done by ED provider, pending radiology final review Discharge Plan Discharge Patient Disposition: Home Clinical Impression: Puncture wound of foot Qualifiers: Encounter type: initial encounter Laterality: right Qualified Code(s): S91.331A - Puncture wound without foreign body, right foot, initial encounter Condition: Stable Prescriptions: New amoxicillin-pot clavulanate 875-125 mg tablet 1 tab PO BID Qty: 14 0RF bacitracin 500 unit/gram ointment 1 applic topical BID Qty: 14.2 0RF No Action 28 mg iron- 800 mcg Tablet 1 tab PO DAILY Discharge Orders: Discharge ED (Routine); Ordered 09/06/23 Ordered By: Pravin Dyer Discharge Diet: Usual diet Discharge Activity: Increase activity as tolerated Patient Instructions: Puncture Wound in the Foot (ED) Activity Restrictions/Additional Instructions: Home and rest. Elevate foot. Clean wound twice daily with mild soap and water and apply antibiotic ointment. Take oral antibiotics as directed for the next 7 days. Monitor site for worsening signs of infection such as increasing redness, increasing swelling, or new concerns. Coding Level of Care Code ED Oxygen Therapist for Mahesh Goddard
[2023-09-06] MEDS: bacitracin ointment Pkt 1 EACH TOPICAL (16:50)
[2023-09-06] MEDS: amoxicillin-clav 875-125 mg Tablet 1 TAB PO (16:50)
--- NOTE | 2023-09-06 17:00 | PC.NURSE ---
This literary writer placed dressing of kerlex, (1) 4x4, and Bacitracin as ordered. Site was cleaned with sterile water and gauze and dried completely before palcing dressing. Pt tolerated well and given supplies to re-dress as pt reported she is going to take a shower when she gets home.
[2023-09-06 17:13] VITALS: BP 114/74; PULSE 84; RESP 20; O2SAT 96
== END 2023-09-06 17:09 | disposition home or self-care (01) ==
PROVIDERS: Emergency Provider Nurse Practitioner Family
DX: O9A.213 Injury, poisoning and certain other consequences of external causes complicating pregnancy, third trimester (principal); S91.331A Puncture wound without foreign body, right foot, initial encounter; W45.0XXA Nail entering through skin, initial encounter; Z3A.37 37 weeks gestation of pregnancy
CPT/HCPCS: 73630; 99283

== ENCOUNTER 2023-09-11 13:00 | Inpatient (IN) | payer BC, MEDICAID, SELFPAY ==
[2023-09-11] VITALS (101 sets, daily range): BP systolic 90–153; BP diastolic 49–95; PULSE 60–96; RESP 16–18; TEMP 36.6; O2SAT 91–100; BMI 44.1
[2023-09-11 12:27] LABS: Nitrazine Paper, PH Inconclusive
[2023-09-11] MEDS: lactated ringers 1,000 ML 999 ML IV (12:51)
--- NOTE | 2023-09-11 13:08 | ANES.PREANE2 ---
Pre-Anesthetic Assessment Height/Weight: Height 1.6 m Weight 112.945 kg Pulse BP 85 129/77 09/11/23 12:24 09/11/23 12:24 Exam alert and oriented x 3 Airway Submandibular: within normal limits Cervical ROM: within normal limits Mallampati: Class I Pulmonary None reported CV/HEM None reported Anesthetic Plan ASA status: 2E Anesthesia: Eval. for regional block Other: spinal Other Pertinent Information last PO 1100 but humberto and ruptured Medications/Allergies Home Medications Medication Instructions Recorded Confirmed Last Taken Type amoxicillin 875 mg-potassium 1 tab PO BID #14 tabs 09/06/23 Unknown Rx clavulanate 125 mg tablet bacitracin 500 unit/gram topical 1 applic topical BID #14.2 grams 09/06/23 Unknown Rx ointment vit no.95-ferrous 1 tab PO DAILY 09/06/23 09/06/23 Unknown History fumarate 28 mg-folic acid 800 mcg tablet () Allergies Allergy/AdvReac Type Severity Reaction Status Date / Time No Known Allergies Allergy Verified 09/06/23 16:20 Current Medications Generic Name Dose Route Start Last Admin Trade Name Freq PRN Reason Stop Dose Admin Lactated Ringer's 1,000 mls @ 999 mls/hr 09/11/23 12:36 09/11/23 12:51 Lactated Ringers IV 09/11/23 13:36 999 mls/hr .Q1H1M ONE Administration PFSH Anesthesia Medical History Urolithiasis Surgical History History of delivery History of plastic surgery Facial plastic surgery as a child Status post laser lithotripsy of ureteral calculus Ureteral and left renal calculi August 2021 Family History Father Healthy adult Mother Healthy adult Social History Smoking and tobacco/nicotine status: never used tobacco/nicotine Alcohol intake: never Substance/Drug Use: never Marital status: Current occupational status: employed Female Reproductive History : 2 Data Anesthesia Cardiac Studies: No Data to Display
[2023-09-11 13:21] LABS: Basophils % 0.3 %; Eosinophils # 0.1 10^3/uL (0.0-0.8); Eosinophils % 0.9 %; Hematocrit 36.9 % (36-47); Lymphocytes # 1.4 10^3/uL (0.8-4.8); Lymphocytes % 15.7 %; Mean Corpuscular HGB Conc 32.8 g/dL (30-55); Mean Corpuscular Hemoglobin 30.1 pg (27-33); Mean Corpuscular Volume 91.8 fl (85-98); Mean Platelet Volume 13.4 fL (7.4-10.4); Monocytes # 0.4 10^3/uL (0.2-0.9); Monocytes % 4.7 %; Neutrophils # 6.98 10^3/uL (1.8-7.7); Nucleated Red Blood Cells % 0 %; Platelet Count 182 10^3/cmm (157-399); Red Blood Count 4.02 10^6/uL (3.85-5.65); Red Cell Distribution Width 13.1 % (12.1-15.1); White Blood Count 8.96 10^3/uL (3.29-11.43)
[2023-09-11] MEDS: famotidine 20 mg/2 mL INJ IVP (13:26)
[2023-09-11] MEDS: metoclopramide 5 mg/mL SDV 2 mL 10 MG IVP (13:26)
[2023-09-11] MEDS: citric acid-sodium citrate 30 mL UDC PO (13:26)
[2023-09-11] MEDS: ceFAZolin 2,000 MG in sodium chloride 0.9% (plus) 50 ML 100 MG IV (13:26)
--- NOTE | 2023-09-11 13:29 | P.HP_ITS ---
Providers/Chief Complaint 2 Chief Complaint: Loss of fluid HPI DIRECTOR REPORT History of Present Illness Massiel Antoine is a 27 year old female 2 para 1-0-0-1 at 38 weeks estimated gestational age with a history of a section and a known breech presentation baby presenting with spontaneous rupture membranes. About 1 hour prior to arriving at the hospital the patient's noticed a sudden gush of fluids. Upon arrival to the hospital she was noted to have grossly ruptured membranes. She has a known breech delivery and was scheduled to have a C- section in 3 days. She gets her care in [place] by Dr. Quiroz. Her has been relatively unremarkable other than the breech presentation. Her infant did have fluid on its kidneys but she thinks that that is gotten better. She has been checked for GBS but she is unrelated to status. Her hepatitis B and hepatitis C status are negative. She is RPR nonreactive HIV nonreactive rubella immune. Her blood type is O-. She is negative for chlamydia and gonorrhea. She is HPV positive. She is currently having consistent contractions that are painful. Otherwise there are no other concerns or complications per the patient. Of note she does not currently have custody of her other child. Her boyfriend also is not allowed to be here as result of a case he has with CPS. Present Details : 2 Para: 1 Review of Systems 2 General: Reports: 10 or more systems reviewed and unremarkable except in HPI and below Const: Reports: fatigue; Denies: fever(s) Eyes: Denies: change in vision Card: Denies: chest pain Musc: Reports: back pain Car/Lymph: Denies: easy bruising Medications/Allergies Home Medications Medication Instructions Recorded Confirmed Last Taken Type amoxicillin 875 mg-potassium 1 tab PO BID #14 tabs 09/06/23 Unknown Rx clavulanate 125 mg tablet bacitracin 500 unit/gram topical 1 applic topical BID #14.2 grams 09/06/23 Unknown Rx ointment vit no.95-ferrous 1 tab PO DAILY 09/06/23 09/06/23 Unknown History fumarate 28 mg-folic acid 800 mcg tablet () Allergies Allergy/AdvReac Type Severity Reaction Status Date / Time No Known Allergies Allergy Verified 09/06/23 16:20 PFSH DIRECTOR REPORT 2 PFSH: Medical History Urolithiasis Surgical History Status post laser lithotripsy of ureteral calculus Ureteral and left renal calculi August 2021 History of plastic surgery Facial plastic surgery as a child History of delivery Family History Father Healthy adult Mother Healthy adult Social History Smoking and tobacco/nicotine status: never used tobacco/nicotine Alcohol intake: never Substance/Drug Use: never Marital status: Current occupational status: employed Vitals/I&O/Wt Last Vital Signs Pulse 86 09/11/23 13:23 BP 143/90 09/11/23 13:23 Weight last 48 hrs Weight 249 lb Physical Exam 2 Const: COMMON NORMALS: patient oriented x3 and alert HENMT: COMMON NORMALS: moist oral mucous membranes HEAD & SCALP: normal to inspection Chest: COMMONS NORMALS: normal inspection of the chest Resp: COMMON NORMALS: clear to auscultation bilaterally AUSCULTATION: clear to auscultation bilaterally Cardio: COMMON NORMALS: regular rate and regular rhythm RATE: regular rate RHYTHM: regular rhythm GI: INSPECTION: Yes normal to inspection and Yes other (Gravid) Extremity: COMMON NORMALS: normal to inspection GENERAL: Yes edema (Trace) Neuro: COMMON NORMALS: patient oriented x3, moves all extremities and no sensory deficits noted SENSORIUM/ORIENTATION: Yes alert Psych: COMMON NORMALS: mental status grossly normal Skin: COMMON NORMALS: no rashes or lesions noted GENERAL SKIN EXAM: no rashes or lesions noted Data 09/11/23 12:40 Results Labs OB ([facility]): 2 Blood Type Pending 09/11/23 Antibody Screen Pending 09/11/23 Hct 36.9 % (36-47) 09/11/23 Hgb 12.10 g/dL (11.27-16.99) 09/11/23 Rho(D) Type Pending 09/11/23 Plt Count 182 10^3/cmm (157-399) 09/11/23 HCG, Qual Negative (Negative) 08/22/21 Micro Urine Specimen 01/13/22 A&P Assessment and plan (1) 38 weeks gestation of : We will proceed with a repeat section due to to a history of previous and the baby being breech presentation. We discussed the risks of bleeding, infection, and damage intra-abdominal organs. She had no further questions and wishes to proceed. (2) Breech presentation of fetus: Attestations 2 Medical Necessity Statement*: I anticipate routine and post care Coding Level of Care Code Acute Code for Chg Fwd Diagnoses 38 weeks gestation of Z3A.38 Breech presentation of fetus O32.1XX0
--- NOTE | 2023-09-11 14:49 | PM.OP ---
Operative Report Date of procedure: September 11, 2023 Pre-op diagnosis: 1. 27-year-old 2 para 1-0-0-1 at 38 weeks estimated gestational age 2. Breech presentation 3. History of 4. Ruptured membranes Post-op diagnosis: Same Procedure done: Low-transverse section Specimens removed/disposition: 1. Healthy-appearing female with a weight of 8 pounds 0 ounces and Apgars of 8 and 9 Surgeon: Parmjit Mcnair MD Estimated blood loss (mL): 1,200 Complications: None Procedure: The patient was brought back to the operating room where she was prepped and draped in usual sterile fashion. Anesthesia was found to be adequate. A lower transverse skin incision was then made with a #10 blade. I then dissected down to the underlying subcutaneous tissue until arriving at the prerectal fascia. The fascia was then nicked with the scalpel bilaterally. The fascial incisions were then carried laterally with Treviño scissors. Attention was then turned to the superior aspect of the incision which was grasped with kochers and tented up away from the underlying rectus abdominis muscles. The muscles were then dissected away from the fascia manually, and later with Treviño scissors. Attention was then turned to the inferior aspect of the incision, and the fascia was dissected away from the underlying muscle in similar fashion. The rectus abdominis muscles were then spread manually. The peritoneum was entered manually. Excellent visualization of the uterus was noted. A lower transverse uterine incision was then made with a #10 blade. Upon arriving at the intrauterine cavity, the uterine incision was then extended manually. The infant was noted to be in kirstin breech position. The baby was delivered without difficulty. After delivery of the head, the mouth and nose were suctioned at the site of the incision. There was no meconium. There was a nuchal cord x 2 which was reduced prior to delivery of the baby.. The cord was cut and clamped. The baby was then handed to the waiting nurse. The placenta was removed intact. The uterus was externalized. The intrauterine cavity was cleansed of any remaining debris. The uterine incision was reapproximated in 2 layers. The first layer was performed with 0 Vicryl in a running locked stitch. The second layer was an imbricating stitch also using 0 Vicryl. The uterus was replaced into the abdomen. The peritoneum was then irrigated with warm saline. During irrigation, residual blood was noted. On reexamination, the uterus was noted to have an area that continued to bleed just below the lateral left incision. I oversewed the area with a couple of [id number] stitches. No more bleeding was noted. I irrigated again and did not note any blood. The rectus abdominis muscles were then reapproximated using 0 Vicryl in a running stitch. The fascia was then reapproximated using 0 Vicryl in running stitch. The subcutaneous tissue was reapproximated using 0 Vicryl in a running stitch. The skin was reapproximated using 4-0 Vicryl in a running subcuticular stitch. Benzoin and Steri-Strips were placed. A sterile dressing was placed. All counts were correct x2. Both the mother and baby were in stable condition.
[2023-09-11] MEDS: dextrose 5%-lactated ringers 1,000 ML 125 ML IV (16:05)
[2023-09-11] MEDS: BUPivacaine 0.5% INJ 30 mL INJECTION (16:06)
[2023-09-11 19:12] LABS: Hematocrit 32.8 % (36-47); Mean Corpuscular HGB Conc 33.2 g/dL (30-55); Mean Corpuscular Hemoglobin 30.7 pg (27-33); Mean Corpuscular Volume 92.4 fl (85-98); Mean Platelet Volume 12.8 fL (7.4-10.4); Platelet Count 181 10^3/cmm (157-399); Red Blood Count 3.55 10^6/uL (3.85-5.65); White Blood Count 14.68 10^3/uL (3.29-11.43)
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
[2023-09-11] MEDS: docusate sodium 100 mg Capsule PO (20:42)
[2023-09-11] MEDS: ketorolac 30 mg/mL INJ IVP (21:53)
[2023-09-11] MEDS: amoxicillin-clav 875-125 mg Tablet 1 TAB PO (21:53)
[2023-09-12 00:51] VITALS: BP 112/76; PULSE 60
[2023-09-12] MEDS: dextrose 5%-lactated ringers 1,000 ML 125 ML IV (00:55)
[2023-09-12 01:52] VITALS: BP 129/71; PULSE 65
[2023-09-12 02:52] VITALS: BP 125/66; PULSE 69
[2023-09-12 03:32] LABS: Hematocrit 30.6 % (36-47); Mean Corpuscular Hemoglobin 30.7 pg (27-33); Mean Platelet Volume 12.3 fL (7.4-10.4); Platelet Count 148 10^3/cmm (157-399); Red Blood Count 3.29 10^6/uL (3.85-5.65); White Blood Count 11.46 10^3/uL (3.29-11.43)
[2023-09-12] MEDS: ketorolac 30 mg/mL INJ IVP (05:05)
[2023-09-12] MEDS: docusate sodium 100 mg Capsule PO ×2 (09:08→20:08)
[2023-09-12 09:10] VITALS: BP 130/73; PULSE 70; TEMP 36.6
[2023-09-12] MEDS: ferrous sulfate EC 325 mg Tablet PO ×2 (09:15→20:08)
[2023-09-12] MEDS: prenatal vitamin Capsule 1 CAP PO (09:15)
[2023-09-12] MEDS: amoxicillin-clav 875-125 mg Tablet 1 TAB PO ×2 (09:57→20:08)
[2023-09-12] MEDS: ibuprofen 800 mg tablet PO (15:49)
[2023-09-12 15:51] VITALS: BP 135/78; PULSE 82
[2023-09-12 22:15] VITALS: BP 128/71; PULSE 98; TEMP 36.7
[2023-09-13] VITALS (8 sets, daily range): BP systolic 120–144; BP diastolic 73–88; PULSE 78–91; RESP 16–17; TEMP 36.5–36.8; O2SAT 97
[2023-09-13] MEDS: acetaminophen 325 mg Tablet 650 MG PO (02:56)
--- NOTE | 2023-09-13 08:54 | P.DS_ITS ---
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 Date of Admission: 09/11/23 13:00 Date of Discharge: 09/14/23 Attending Provider at Admission: Parmjit Mcnair MD Attending Provider at Discharge: Parmjit Mcnair MD Diagnoses at Discharge Discharge Diagnosis (1) 38 weeks gestation of : Status: Resolved (2) Breech presentation of fetus: Status: Resolved Reason for Visit Reason for Visit: Loss of fluid Information Peripartum Data: Infant Delivery Method: Physical Exam Narrative: She is in no acute distress Lungs are clear auscultation bilaterally Her heart has a regular rate and rhythm Her fundus is below the umbilicus and firm Her dressing is clean, dry and intact Her extremities have trace edema Urinary Catheter Management: Beard Latex Free: Cath Placed During This Visit: yes, but has since been removed by the nurse Reason for Continuing Indwelling Catheter: Decision to DC Catheter Urinary Catheter Date of Insertion: 09/11/23 Urinary Catheter Time of Insertion: 13:45 Date Urinary Catheter Removed: 09/12/23 Time Urinary Catheter Discontinued: 08:40 Discharge Data Studies Completed and Pending Laboratory Results WBC 11.46 10^3/uL (3.29-11.43) H 09/12/23 03:25 RBC 3.29 10^6/uL (3.85-5.65) L 09/12/23 03:25 Hgb 10.10 g/dL (11.27-16.99) L 09/12/23 03:25 Hct 30.6 % (36-47) L 09/12/23 03:25 MCV 93.0 fl (85-98) 09/12/23 03:25 MCH 30.7 pg (27-33) 09/12/23 03:25 MCHC 33.0 g/dL (30-55) 09/12/23 03:25 RDW 13.0 % (12.1-15.1) 09/12/23 03:25 Plt Count 148 10^3/cmm (157-399) L 09/12/23 03:25 MPV 12.3 fL (7.4-10.4) H 09/12/23 03:25 Neut % (Auto) 78.0 % 09/11/23 12:40 Lymph % (Auto) 15.7 % 09/11/23 12:40 [place] % (Auto) 4.7 % 09/11/23 12:40 Eos % (Auto) 0.9 % 09/11/23 12:40 Baso % (Auto) 0.3 % 09/11/23 12:40 Neut # (Auto) 6.98 10^3/uL (1.8-7.7) 09/11/23 12:40 Lymph # (Auto) 1.4 10^3/uL (0.8-4.8) 09/11/23 12:40 [place] # (Auto) 0.4 10^3/uL (0.2-0.9) 09/11/23 12:40 Eos # (Auto) 0.1 10^3/uL (0.0-0.8) 09/11/23 12:40 Baso # (Auto) 0.0 10^3/uL (0.0-0.1) 09/11/23 12:40 Nucleated RBC % (auto) 0 % 09/11/23 12:40 Nucleated RBCs # 0.0 /100WBC 09/11/23 12:40 Fluid pH (paper) Inconclusive 09/11/23 12:24 Blood Type O Negative 09/11/23 12:40 Rho(D) Type Negative 09/11/23 12:40 Antibody Screen Positive 09/11/23 12:40 Antibody Identification Anti-D 09/11/23 12:40 Vitals Last Vital Signs Temp 98.2 F 09/13/23 05:06 Pulse 83 09/13/23 04:52 Resp 17 09/13/23 05:06 BP 120/73 09/13/23 04:51 Pulse Ox 97 09/13/23 04:52 O2 Del Method Room Air 09/13/23 05:06 Results Labs OB ([facility]): Blood Type O Negative 09/11/23 Antibody Screen Positive 09/11/23 Hct 30.6 % (36-47) L 09/12/23 Hgb 10.10 g/dL (11.27-16.99) L 09/12/23 Rho(D) Type Negative 09/11/23 Plt Count 148 10^3/cmm (157-399) L 09/12/23 HCG, Qual Negative (Negative) 08/22/21 Micro Urine Specimen 08/22/21 Discharge Plan Discharge Patient Disposition: Home Condition: Stable Prescriptions: New ibuprofen 800 mg Tablet 800 mg PO TID PRN (Reason: Pain, Moderate) Qty: 45 0RF hydrocodone-acetaminophen 5-325 mg Tablet 1 tab PO Q6H PRN (Reason: Moderate To Severe Pain) Qty: 28 0RF Continued amoxicillin-pot clavulanate 875-125 mg tablet 1 tab PO BID Qty: 14 0RF 28 mg iron- 800 mcg Tablet 1 tab PO DAILY Discontinued bacitracin 500 unit/gram ointment 1 applic topical BID Qty: 14.2 0RF Discharge Orders: Discharge Order (Routine); Ordered 09/13/23 Ordered By: Parmjit Mcnair Referrals: Parmjit Mcnair MD [Physician] - 4-7 days Discharge Diet: Usual diet Discharge Activity: Limit activity as instructed Patient Instructions: Depression (GEN), Expression, Collection and Storage of Breast Milk (GEN), and Nipple Soreness (GEN), Bleeding (DC), Breast Care for the Mother (DC), OB C- Section - Tabby/Marie, OB Discharge Report, Opioid Safety, OB Home Care Discharge Attestations GEOMATICS PROFESSOR Time Spent in Discharge Care*: less than 30 min Coding Level of Care Code Acute Code for Chg Fwd Diagnoses 38 weeks gestation of Z3A.38 Breech presentation of fetus O32.1XX0
[2023-09-13] MEDS: amoxicillin-clav 875-125 mg Tablet 1 TAB PO (09:46)
[2023-09-13] MEDS: prenatal vitamin Capsule 1 CAP PO (09:46)
[2023-09-13] MEDS: ferrous sulfate EC 325 mg Tablet PO (09:46)
[2023-09-13] MEDS: ibuprofen 800 mg tablet PO (09:47)
[2023-09-13] MEDS: docusate sodium 100 mg Capsule PO (09:47)
--- NOTE | 2023-09-14 18:11 | P.PN_ITS ---
MAINTENANCE MECHANIC ELEVATORS Subjective 2 Subjective: Interval history: This note corresponds to examination performed on September 12 The patient is doing well. Her pain is well-controlled. She is passing flatus. There are no concerns. Labor: Station: -3 Amniotic Membrane Status: Ruptured Monitor Mode: Palpation Contraction Pattern: Regular Status: Category I Vitals/I&O/Wt Last Vital Signs Temp 97.9 F 09/13/23 15:11 Pulse 82 09/13/23 15:10 Resp 16 09/13/23 15:11 BP 130/88 09/13/23 15:10 Pulse Ox 97 09/13/23 04:52 O2 Del Method Room Air 09/13/23 05:06 Physical Exam 2 Narrative: She is in no acute distress Lungs are clear auscultation bilaterally Her heart has a regular rate and rhythm Her fundus is below the umbilicus and firm Her dressing is clean, dry and intact Her extremities have trace edema Urinary Catheter Management: Beard Latex Free: Cath Placed During This Visit: yes, but has since been removed by the nurse Reason for Continuing Indwelling Catheter: Decision to DC Catheter Urinary Catheter Date of Insertion: 09/11/23 Urinary Catheter Time of Insertion: 13:45 Date Urinary Catheter Removed: 09/12/23 Time Urinary Catheter Discontinued: 08:40 Data 09/12/23 03:25 A&P Assessment and plan (1) Breech presentation of fetus: I anticipate routine post care. (2) Status post section: Attestations 2 Medical Necessity Statement*: Routine post care Coding Level of Care Code Acute Code for Chg Fwd Diagnoses Breech presentation of fetus O32.1XX0 Status post section Z98.891
== END 2023-09-13 15:20 | disposition home or self-care (01) | DRG 787 ==
LOC: OPOB 14:01 → OBGYN 14:01
PROVIDERS: Admitting Provider Family Medicine; Visit Provider Family Medicine
PROC: 10D00Z1 Extraction of Products of Conception, Low, Open Approach (ICD-10-PCS; CPT 59514; principal; 2023-09-11 13:30)
DX: O32.1XX0 Maternal care for breech presentation, not applicable or unspecified (principal); O99.834 Other infection carrier state complicating childbirth; O69.81X0 Labor and delivery complicated by cord around neck, without compression, not applicable or unspecified; Z22.8 Carrier of other infectious diseases; Z3A.38 38 weeks gestation of pregnancy; Z37.0 Single live birth; O34.211 Maternal care for low transverse scar from previous cesarean delivery; N85.8 Other specified noninflammatory disorders of uterus; O75.82 Onset (spontaneous) of labor after 37 completed weeks of gestation but before 39 completed weeks gestation, with delivery by (planned) cesarean section
CPT/HCPCS: 36415; 51702; 59025; 59409; 83986; 85025; 85027; 86850; 86870; 86900; 96374; 96376; 99211; J0690; J1200; J1885; J2274; J2371; J2405; J2765; J3010; J3490; J7120; J7121

== ENCOUNTER → 2024-02-04 12:58 | Outpatient (BNVA) | payer BC, MEDICAID, SELFPAY | PROVIDERS: Visit Provider Nurse Practitioner | DX: J02.9 Acute pharyngitis, unspecified (principal) | CPT/HCPCS: 87880 ==

== ENCOUNTER 2024-02-21 11:00 | Emergency (ER) | payer BC, MEDICAID, SELFPAY ==
[2024-02-21 11:19] VITALS: BP 124/88; PULSE 72; TEMP 36.8; O2SAT 98; BMI 39.4
[2024-02-21 11:32] LABS: Eosinophils # 0.1 10^3/uL (0.0-0.8); Eosinophils % 2.8 %; Hematocrit 40.4 % (36-47); Lymphocytes # 1.4 10^3/uL (0.8-4.8); Lymphocytes % 36.3 %; Mean Corpuscular HGB Conc 31.9 g/dL (30-55); Mean Corpuscular Hemoglobin 28.1 pg (27-33); Mean Platelet Volume 10.8 fL (7.4-10.4); Monocytes # 0.4 10^3/uL (0.2-0.9); Monocytes % 9.3 %; Neutrophils # 1.96 10^3/uL (1.8-7.7); Neutrophils % 50.6 %; Nucleated Red Blood Cells % 0 %; Platelet Count 267 10^3/cmm (157-399); Red Blood Count 4.59 10^6/uL (3.85-5.65); Red Cell Distribution Width 13.3 % (12.1-15.1); White Blood Count 3.88 10^3/uL (3.29-11.43)
[2024-02-21 11:49] LABS: Add Urine Microscopic? NO; Charge for UA Resulting for Rev
[2024-02-21 11:49] LABS: HCG, Serum Qual Negative (Negative)
[2024-02-21 11:54] LABS: Alanine Aminotransferase 23 U/L (0-33); Albumin Level 4.1 g/dL (3.5-5.2); Alkaline Phosphatase 103 U/L (35-105); Anion Gap 16.9 (5-19); Aspartate Amino Transferase 15 U/L (0-32); Blood Urea Nitrogen 11 mg/dL (6-20); Carbon Dioxide 22 mmol/L (22-29); Chloride 104 mmol/L (98-107); Creatinine Clr Calc Pharmacy 107.5689; Globulin 3.2 g/dL (1.3-4.6); Glomerular Filtration Rate 73.5 mL/min (90-130); Glucose 98 mg/dL (65-115); Lipase 23 U/L (13-60); Osmolality Calculated 287 mOsm/kg (285-295); Potassium 3.9 mmol/L (3.5-5.1); Sodium 139 mmol/L (136-145); Total Bilirubin 0.5 mg/dL (0.15-1.2); Total Protein 7.3 g/dL (6.6-8.7)
[2024-02-21 11:55] LABS: Blood Urine Neg (Negative); Glucose Urine UA Norm (Normal); Ketones Urine Negative (Negative); Nitrate Urine Negative (Negative); Protein Urine Neg (Negative); Specific Gravity, Urine 1.025 (1.005-1.030); Urine Appearance Clear (CLEAR); Urine Color Yellow (Yellow); pH Urine 5 (5-7)
[2024-02-21 11:56] LABS: Bilirubin Urine Neg (Negative); Leukocyte Esterase Urine Negative (Negative); Urobilinogen Urine Norm (Negative)
--- NOTE | 2024-02-21 13:23 | ED_ITS ---
HPI - Nausea/Vomiting/Diarrhea 2 General: Chief complaint: Nausea/Vomiting/Diarrhea Stated complaint: N/V/D Time Seen by Provider: 02/21/24 13:23 History of Present Illness: 28-year-old female comes in today with c omplaints of diarrhea for approximately 1 month. Patient does have an occasional nausea with vomiting but for the most part she comes in due to the persistent diarrhea. Patient reports that a month ago she became ill with nausea vomiting diarrhea. Patient then about a week later got strep infection and was given azithromycin. Patient has continued to have diarrhea. Patient also has a insect bite to her left lower abdomen wall that is crusted and tender. Patient takes no routine medications. Patient takes no routine supplements. Patient denies nicotine, THC, methamphetamines, and alcohol use. Patient reports no recent camping expeditions. Patient does occasionally have some chills. Patient surgeries consist of . Associated nausea: Yes Associated symtoms: Reports nausea Review of Systems 2 General: Reports: 10 or more systems reviewed and unremarkable except in HPI and below GI: Reports: nausea and diarrhea Skin/Breast: Reports: non-healing lesions PFSH ED 2 PFSH: Medical History Urolithiasis Surgical History Status post laser lithotripsy of ureteral calculus Ureteral and left renal calculi August 2021 History of plastic surgery Facial plastic surgery as a child History of delivery Family History Father Healthy adult Mother Healthy adult Social History Smoking and tobacco/nicotine status: unknown if used tobacco/nicotine Alcohol intake: never Substance/Drug Use: never Marital status: Current occupational status: employed Physical Exam 2 Const: COMMON NORMALS: alert HENMT: COMMON NORMALS: normocephalic HEAD & SCALP: normocephalic Neck/C-Spine: COMMON NORMALS: full ROM Resp: COMMON NORMALS: normal respiratory effort and clear to auscultation bilaterally AUSCULTATION: clear to auscultation bilaterally Cardio: COMMON NORMALS: regular rate and regular rhythm RATE: regular rate RHYTHM: regular rhythm GI: COMMON NORMALS: Soft to palpation AUSCULTATION: Yes normoactive bowel sounds PALPATION: Yes Soft to palpation, Yes Tenderness to palpation present (GI), No Guarding due to palpation present (GI), No Rigid due to palpation and No Rebound tenderness present : COMMON NORMALS: Yes no CVA tenderness BLADDER/KIDNEY EXAM: Yes no CVA tenderness Back/Pelvis: COMMON NORMALS: no CVA tenderness Extremity: COMMON NORMALS: full ROM Neuro: SENSORIUM/ORIENTATION: Yes alert Skin: COMMON NORMALS: turgor normal GENERAL SKIN EXAM: turgor normal L ESIONS: lesion noted (Crusted lesion left lower abdomen, no significant redness surrounding it) Course 2 Vital Signs: Vital signs: Vital Signs Temperature 98.2 F 02/21/24 11:19 Pulse Rate 72 02/21/24 11:19 Blood Pressure 124/88 02/21/24 11:19 Pulse Oximetry 98 02/21/24 11:19 Oxygen Delivery Me thod Room Air 02/21/24 11:19 MDM - Nausea/Vomiting/Diarrhea Medical Decision Making 28-year-old female comes in today for concerns of persistent diarrhea x 1 month. Patient appears nontoxic. Patient appears no pain. Abdomen soft with mild tender on palpation without any rebound tenderness. Differential diagnosis includes not limited to infectious bacterial diarrhea, antibiotic associated diarrhea, C. difficile, dehydration, gallbladder disease. Patient was on a high dose of azithromycin 500 mg for 5 days for the treatment of strep pharyngitis. I believe most likely this has caused patient to develop antibiotic associated diarrhea. Patient be treated with Flagyl 500 mg 3 times a day for 7 days. Patient is also concerned about a spider bite to her waist in her left lower quadrant. We note a crusted lesion with minimal to no redness surrounding it. Suspect just a superficial skin infection. Will treat with mupirocin ointment. Discussed need for follow-up or return to the ER for worsening symptoms. Patient reports understanding of care plan and need for follow-up or return to the ER. Lab Data 02/21/24 11:27 02/21/24 11:27 Laboratory Results WBC 3.88 10^3/uL (3.29-11.43) 02/21/24 11: RBC 4.59 10^6/uL (3.85-5.65) 02/21/24 11:27 Hgb 12.90 g/dL (11.27-16.99) 02/21/24 11: Hct 40.4 % (36-47) 02/21/24 11: MCV 88.0 fl (85-98) 02/21/24 11: MCH 28.1 pg (27-33) 02/21/24 11: MCHC 31.9 g/dL (30-55) 02/21/24 11: RDW 13.3 % (12.1-15.1) 02/21/24 11:27 Plt Count 267 10^3/cmm (157-399) 02/21/24 11:27 MPV 10.8 fL (7.4-10.4) H 02/21/24 11: Neut % (Auto) 50.6 % 02/21/24 11: Lymph % (Auto) 36.3 % 02/21/24 11: [place] % (Auto) 9.3 % 02/21/24 11: Eos % (Auto) 2.8 % 02/21/24 11: Baso % (Auto) 1.0 % 02/21/24 11:27 Neut # (Auto) 1.96 10^3/uL (1.8-7.7) 02/21/24 11: Lymph # (Auto) 1.4 10^3/uL (0.8-4.8) 02/21/24 11:27 [place] # (Auto) 0.4 10^3/uL (0.2-0.9) 02/21/24 11: Eos # (Auto) 0.1 10^3/uL (0.0-0.8) 02/21/24 11: Baso # (Auto) 0.0 10^3/uL (0.0-0.1) 02/21/24 11: Nucleated RBC % (auto) 0 % 02/21/24 11: Nucleated RBCs # 0.0 /100WBC 02/21/24 11: Sodium 139 mmol/L (136-145) 02/21/24 11:27 Potassium 3.9 mmol/L (3.5-5.1) 02/21/24 11: Chloride 104 mmol/L (98-107) 02/21/24 11: Carbon Dioxide 22 mmol/L (22-29) 02/21/24 11:27 Anion Gap 16.9 (5-19) 02/21/24 11:27 BUN 11 mg/dL (6-20) 02/21/24 11:27 Creatinine 0.9 mg/dL (0.5-0.9) 02/21/24 11:27 GFR Calculation 73.5 mL/min (90-130) L 02/21/24 11:27 Glucose 98 mg/dL (65-115) 02/21/24 11:27 Calculated Osmolality 287 mOsm/kg (285-295) 02/21/24 11:27 Calcium 9.0 mg/dL (8.5-10.5) 02/21/24 11:27 Total Bilirubin 0.5 mg/dL (0.15-1.2) 02/21/24 11:27 AST 15 U/L (0-32) 02/21/24 11: ALT 23 U/L (0-33) 02/21/24 11:27 Alkaline Phosphatase 103 U/L (35-105) 02/21/24 11:27 Total Protein 7.3 g/dL (6.6-8.7) 02/21/24 11:27 Albumin 4.1 g/dL (3.5-5.2) 02/21/24 11:27 Globulin 3.2 g/dL (1.3-4.6) 02/21/24 11:27 Lipase 23 U/L (13-60) 02/21/24 11:27 HCG, Qual Negative (Negative) 02/21/24 11:27 Urine Color Yellow (Yellow) 02/21/24 11:43 Urine Appearance Clear (CLEAR) 02/21/24 11:43 Urine pH 5 (5-7) 02/21/24 11:43 Ur Specific [place] 1.025 (1.005-1.030) 02/21/24 11:43 Urine Protein Neg (Negative) 02/21/24 11:43 Urine Glucose (UA) Norm (Normal) 02/21/24 11:43 Urine Ketones Negative (Negative) 02/21/24 11:43 Urine Blood Neg (Negative) 02/21/24 11:43 Urine Nitrate Negative (Negative) 02/21/24 11:43 Urine Bilirubin Neg (Negative) 02/21/24 11:43 Urine Urobilinogen Norm mg/dL (Negative) 02/21/24 11:43 Ur Leukocyte Esterase Negative (Negative) 02/21/24 11:43 No radiology studies performed this visit Discharge Plan Discharge Patient Disposition: Home Clinical Impression: Antibiotic-associated diarrhea Infected insect bite of abdomen Qualifiers: Encounter type: initial encounter Qualified Code(s): S30.861A - Insect bite (nonvenomous) of abdominal wall, initial encounter Condition: Stable Prescriptions: New mupirocin 2 % ointment 1 applic topical TID Qty: 22 0RF metronidazole 500 mg tablet 500 mg PO Q8H 7 Days Qty: 21 0RF No Action azithromycin 500 mg tablet 500 mg PO DAILY 5 Days Qty: 5 0RF 28 mg iron- 800 mcg Tablet 1 tab PO DAILY ibuprofen 800 mg Tablet 800 mg PO TID PRN (Reason: Pain, Moderate) Qty: 45 0RF hydrocodone-acetaminophen 5-325 mg Tablet 1 tab PO Q6H PRN (Reason: Moderate To Severe Pain) Qty: 28 0RF Discharge Orders: Discharge ED (Routine); Ordered 02/21/24 Ordered By: Pravin Dyer Discharge Diet: Usual diet Discharge Activity: Increase activity as tolerated Patient Instructions: Acute Diarrhea (ED) Activity Restrictions/Additional Instructions: Home and rest. Drink plenty of fluids. Consume electrolyte solutions to help maintain adequate electrolytes. I would recommend 8 ounces of Gatorade or Pedialyte 2-3 times a day to assist. Try to increase fiber intake which will help bulk up the stool and slow transit through the gut. Take the metronidazole 500 mg 3 times a day for the next 7 days. Take the medication with a meal in order to avoid nausea. Clean your insect bite with mild soap and water 3 times a day and apply ibuprofen ointment until healed. Follow-up with primary care in 1 week for recheck. Return to ER for worsening symptoms such as severe abdominal pain, blood in vomit or stool, or fever greater than 100.4. Coding Level of Care Code ED Neurological Surgeon for Mahesh Goddard
[2024-02-21 13:48] VITALS: BP 132/90; PULSE 72; RESP 16; O2SAT 100
== END 2024-02-21 13:47 | disposition home or self-care (01) ==
PROVIDERS: Emergency Medicine; Emergency Provider Nurse Practitioner Family
DX: S30.861A Insect bite (nonvenomous) of abdominal wall, initial encounter (principal); R19.7 Diarrhea, unspecified; Z79.899 Other long term (current) drug therapy; W57.XXXA Bitten or stung by nonvenomous insect and other nonvenomous arthropods, initial encounter
CPT/HCPCS: 36415; 80053; 81003; 83690; 84703; 85025; 99283

== ENCOUNTER 2024-08-07 12:31 | Emergency (ER) | payer BC, MEDICAID, SELFPAY ==
[2024-08-07 12:32] VITALS: BP 136/88; PULSE 77; RESP 16; TEMP 36.8; O2SAT 99; BMI 41.1
--- NOTE | 2024-08-07 12:52 | ED_ITS ---
HPI - Dental/Oral General: Chief complaint: Dental/Oral Stated complaint: pain in mouth Time Seen by Provider: 08/07/24 12:49 Source: patient Mode of arrival: ambulatory Limitations: no limitations History of Present Illness: 28-year-old female who states that she h as been having left upper dental pain for the last 2 days. States she did cracked a molar back in September of this had intermittent pain at that site. States pain sharp in nature worse with eating rates pain a 5 out of 10 denies any fever denies difficulty swallowing Associated symptoms: Denies fever(s) Related Data Home Medications Medication Instructions Recorded Confirmed vit no.95-ferrous 1 tab PO DAILY 09/06/23 02/04/24 fumarate 28 mg-folic acid 800 mcg tablet () Previous Rx's Medication Instructions Recorded hydrocodone 5 mg-acetaminophen 325 1 tab PO Q6H PRN Moderate To 09/13/23 mg tablet Severe Pain #28 tabs ibuprofen 800 mg tablet 800 mg PO TID PRN Pain, Moderate 09/13/23 #45 tabs azithromycin 500 mg tablet 500 mg PO DAILY 5 days #5 tabs 02/04/24 mupirocin 2 % topical ointment 1 applic topical TID #22 grams 02/21/24 cephalexin 500 mg capsule 500 mg PO TID 7 days #21 caps 08/07/24 naproxen 500 mg tablet (Naprosyn) 500 mg PO BID PRN pain #20 tabs 08/07/24 Allergies Allergy/AdvReac Type Severity Reaction Status Date / Time No Known Allergies Allergy Verified 08/07/24 12:38 Review of Systems Const: Denies: fever(s), chills, body aches or change in appetite ENMT: Reports: dental pain; Denies: throat pain Card: Denies: chest pain Resp: Denies: dyspnea GI: Denies: abdominal pain, nausea, vomiting or diarrhea Musc: Denies: neck pain or back pain Skin/Breast: Denies: rash Neuro: Denies: headache(s) PFS ED PFSH: Medical History Urolithiasis Surgical History Status post laser lithotripsy of ureteral calculus Ureteral and left renal calculi August 2021 History of plastic surgery Facial plastic surgery as a child History of delivery Family History Father Healthy adult Mother Healthy adult Social History Smoking and tobacco/nicotine status: unknown if used tobacco/nicotine Alcohol intake: never Substance/Drug Use: never Marital status: Current occupational status: employed Female Reproductive History: Date of last menstrual period: 08/07/24 Physical Exam Const: COMMON NORMALS: no acute distress, patient oriented x3 and healthy appearing HENMT: COMMON NORMALS: normocephalic and atraumatic HEAD & SCALP: normocephalic and atraumatic OTHER: Tenderness over left upper molar no abscess noted no trismus Neck/C-Spine: COMMON NORMALS: full ROM and supple Chest: COMMONS NORMALS: normal inspection of the chest Resp: COMMON NORMALS: normal respiratory effort Cardio: COMMON NORMALS: regular rate RATE: regular rate Extremity: COMMON NORMALS: normal to inspection and full ROM Neuro: COMMON NORMALS: patient oriented x3, moves all extremities and no focal motor deficits Psych: COMMON NORMALS: mental status grossly normal, Normal thought process pr esent and cooperative THOUGHT PROCESS: Normal thought process present Skin: COMMON NORMALS: no rashes or lesions noted and no wounds GENERAL SKIN EXAM: no rashes or lesions noted Course Vital Signs: Vital signs: Vital Signs Temperature 98.3 F 08/07/24 12:32 Pulse Rate 77 08/07/24 12:32 Respiratory Rate 16 08/07/24 12:32 Blood Pressure 136/88 08/07/24 12:32 Pulse Oximetry 99 08/07/24 12:32 Oxygen Delivery Me thod Room Air 08/07/24 12:32 MDM - Dental/Oral Medical Decision Making Patient presents here with dental pain no abscess no trismus we will start her on antibiotics she is to follow-up with dentist return if worsening. Medical Records I reviewed the patient's medical records. No radiology studies performed this visit Discharge Plan Discharge Patient Disposition: Home Clinical Impression: Pain, dental Condition: Stable Prescriptions: New cephalexin 500 mg capsule 500 mg PO TID 7 Days Qty: 21 0RF naproxen [Naprosyn] 500 mg tablet 500 mg PO BID PRN (Reason: pain) Qty: 20 0RF No Action azithromycin 500 mg tablet 500 mg PO DAILY 5 Days Qty: 5 0RF 28 mg iron- 800 mcg Tablet 1 tab PO DAILY mupirocin 2 % ointment 1 applic topical TID Qty: 22 0RF ibuprofen 800 mg Tablet 800 mg PO TID PRN (Reason: Pain, Moderate) Qty: 45 0RF hydrocodone-acetaminophen 5-325 mg Tablet 1 tab PO Q6H PRN (Reason: Moderate To Severe Pain) Qty: 28 0RF Discharge Orders: Discharge ED (Routine); Ordered 08/07/24 Ordered By: Rodrigo Romero Referrals: [facility], [Primary Care Provider] - Discharge Diet: Advance as tolerated Discharge Activity: Resume usual activity Patient Instructions: Toothache (ED) Coding Level of Care Code ED High School Foreign Language Teacher for Mahesh Goddard
[2024-08-07] MEDS: HYDROcodone-acetaminophen 7.5-325 mg Tablet 1 TAB PO (12:59)
[2024-08-07 13:07] VITALS: BP 133/87; PULSE 89; O2SAT 99
== END 2024-08-07 13:09 | disposition home or self-care (01) ==
PROVIDERS: Emergency Provider Emergency Medicine
DX: K08.89 Other specified disorders of teeth and supporting structures (principal)
CPT/HCPCS: 99283

== ENCOUNTER → 2024-09-23 12:28 | Outpatient (BNVA) | payer BC, MEDICAID, SELFPAY | PROVIDERS: Visit Provider Nurse Practitioner Family | DX: R05.9 Cough, unspecified (principal) | CPT/HCPCS: 87400 ==

== ENCOUNTER 2024-12-25 06:04 | Emergency (ER) | payer BC, MEDICAID, SELFPAY ==
[2024-12-25 06:30] VITALS: BP 129/81; PULSE 95; RESP 18; TEMP 35.8; O2SAT 100; BMI 41.1
--- NOTE | 2024-12-25 06:57 | USR_ITS ---
PROCEDURE INFORMATION: Exam: US Duplex Left Lower Extremity Veins, Limited Exam date and time: 12/25/2024 7:22 AM Age: 29 years old Clinical indication: Swelling (edema) of limb; Lower extremity, left; Additional info: Leg swelling TECHNIQUE: Imaging protocol: Real-time duplex ultrasound of the left extremity with 2-D bull scale, color Doppler flow and spectral waveform analysis including responses to compression and other maneuvers (when performed) with image documentation. Limited exam focused on the left lower extremity veins. COMPARISON: US pelv w/transvag [id number] 03/13/2020 2:19 PM FINDINGS: Left deep veins: Unremarkable. The common femoral, femoral, proximal profunda femoral, popliteal, posterior tibial and peroneal veins are patent without thrombus. Normal compressibility, augmentation response and Doppler waveforms. Superficial veins: Greater saphenous vein at the saphenofemoral junction is patent without thrombus. Soft tissues: 1.9 x 1.2 x 1.6 cm popliteal cyst. US/CV venous duplex [facility] [id number] IMPRESSION: 1. No sonographic evidence of deep vein thrombosis. 2. 1.9 x 1.2 x 1.6 cm popliteal cyst.
--- NOTE | 2024-12-25 06:58 | ED_ITS ---
HPI - Extremity Problem 2 General: Chief complaint: Extremity Problem,Nontraumatic Stated complaint: increasing swelling in legs up to thighs w/ heat Time Seen by Provider: 12/25/24 06:46 Source: patient Mode of arrival: ambulatory Limitations: no limitations History of Present Illness: 29-year-old female who states that she h as had swelling to her left leg mainly at the ankle and calf it has been going on over the last 3 to 4 days states she has had some pain denies any fevers patient denies any injuries no history of blood clots. Associated symptoms: Deny chest pain, fever(s) or rash Related Data Previous Rx's ?Medication ?Instructions ?Recorded ibuprofen 800 mg tablet 800 mg PO TID PRN pain #20 t abs 10/20/24 prednisone 20 mg tablet 20 mg PO BID 5 days #10 tabs 10/20/24 citalopram 20 mg tablet (Celexa) 20 mg PO DAILY #30 ta bs 10/31/24 Allergies Allergy/AdvReac Type Severity Reaction Status Date / Time No Known Allergies Allergy Verified 10/31/24 14:38 Review of Systems 2 Const: Denies: fever(s), chills, body aches or change in appetite Eyes: Denies: blurry vision or eye discomfort ENMT: Denies: throat pain or dental pain Card: Denies: chest pain Resp: Denies: dyspnea GI: Denies: abdominal pain, nausea, vomiting or diarrhea : Denies: dysuria Musc: Denies: neck pain or back pain Skin/Breast: Denies: rash Neuro: Denies: headache(s) Psych: Denies: depression Car/Lymph: Denies: easy bruising All/Imm: Denies: urticaria PFSH ED 2 PFSH: Medical History Urolithiasis Surgical History Status post section Status post laser lithotripsy of ureteral calculus Ureteral and left renal calculi August 2021 History of plastic surgery Facial plastic surgery as a child History of delivery Family History Father Healthy adult Mother Healthy adult Social History Smoking and tobacco/nicotine status: never used tobacco/nicotine Alcohol intake: never Substance/Drug Use: never Marital status: Current occupational status: employed Female Reproductive History: Date of last menstrual period: 11/27/24 Physical Exam 2 Const: COMMON NORMALS: no acute distress, patient oriented x3 and healthy appearing HENMT: COMMON NORMALS: normocephalic and atraumatic HEAD & SCALP: n ormocephalic and atraumatic Eye: COMMON NORMALS: conjunctivae normal CONJUNCTIVA: Yes conjunctivae normal Neck/C-Spine: COMMON NORMALS: full ROM and supple Chest: COMMONS NORMALS: normal inspection of the chest Resp: COMMON NORMALS: normal respiratory effort Cardio: COMMON NORMALS: regular rate RATE: regular rate Extremity: COMMON NORMALS: full ROM NARRATIVE EXTREMITY EXAM: Slight swelling to left lower extremity no warmth to touch distal pulses sensation intact Neuro: COMMON NORMALS: patient oriented x3, moves all extremities and no focal motor deficits Psych: COMMON NORMALS: mental status grossly normal, Normal thought process present and cooperative THOUGHT PROCESS: Normal thought process present Skin: COMMON NORMALS: no rashes or lesions noted and no wounds GENERAL SKIN EXAM: no rashes or lesions noted Course 2 Vital Signs: Vital signs: Vital Signs Temperature 96.4 F L 12/25/24 06:30 Pulse Rate 95 12/25/24 06:30 Respiratory Rate 18 12/25/24 06:30 Blood Pressure 129/81 12/25/24 06:30 Pulse Oximetry 100 12/25/24 06:30 Oxygen Delivery Me thod Room Air 12/25/24 06:30 MDM - Extremity (Nontraumatic) Medical Decision Making Patient presents here with over the left leg swelling her exam here is benign ultrasound showed no DVT blood works normal no signs of cellulitis she stable for discharge follow-up PCP return if worsening. Medical Records I reviewed the patient's medical records. Lab Data I reviewed the patient's lab results. 12/25/24 07:03 12/25/24 07:03 Laboratory Results WBC 7.95 10^3/uL (3.29-11.43) 12/25/24 07:03 RBC 4.33 10^6/uL (3.85-5.65) 12/25/24 07:03 Hgb 13.10 g/dL (11.27-16.99) 12/25/24 07:03 Hct 39.1 % (36-47) 12/25/24 07:03 MCV 90.3 fl (85-98) 12/25/24 07:03 MCH 30.3 pg (27-33) 12/25/24 07:03 MCHC 33.5 g/dL (30-55) 12/25/24 07:03 RDW 13.0 % (12.1-15.1) 12/25/24 07:03 Plt Count 294 10^3/cmm (157-399) 12/25/24 07:03 MPV 10.6 fL (7.4-10.4) H 12/25/24 07:03 Neut % (Auto) 58.0 % 12/25/24 07:03 Lymph % (Auto) 31.6 % 12/25/24 07:03 [place] % (Auto) 7.0 % 12/25/24 07:03 Eos % (Auto) 2.3 % 12/25/24 07:03 Baso % (Auto) 0.8 % 12/25/24 07:03 Neut # (Auto) 4.62 10^3/uL (1.8-7.7) 12/25/24 07:03 Lymph # (Auto) 2.5 10^3/uL (0.8-4.8) 12/25/24 07:03 [place] # (Auto) 0.6 10^3/uL (0.2-0.9) 12/25/24 07:03 Eos # (Auto) 0.2 10^3/uL (0.0-0.8) 12/25/24 07:03 Baso # (Auto) 0.1 10^3/uL (0.0-0.1) 12/25/24 07:03 Nucleated RBC % (auto) 0 % 12/25/24 07:03 Nucleated RBCs # 0.0 /100WBC 12/25/24 07:03 ESR 10 mm/hr (0-15) 12/25/24 07:03 Sodium 141 mmol/L (136-145) 12/25/24 07:03 Potassium 4.0 mmol/L (3.5-5.1) 12/25/24 07:03 Chloride 104 mmol/L (98-107) 12/25/24 07:03 Carbon Dioxide 24 mmol/L (22-29) 12/25/24 07:03 Anion Gap 17.0 (5-19) 12/25/24 07:03 BUN 12 mg/dL (6-20) 12/25/24 07:03 Creatinine 0.9 mg/dL (0.5-0.9) 12/25/24 07:03 Glucose 82 mg/dL (65-115) 12/25/24 07:03 Calculated Osmolality 291 mOsm/kg (285-295) 12/25/24 07:03 Calcium 9.5 mg/dL (8.5-10.5) 12/25/24 07:03 Total Bilirubin 0.2 mg/dL (0.15-1.2) 12/25/24 07:03 AST 16 U/L (0-32) 12/25/24 07:03 ALT 20 U/L (0-33) 12/25/24 07:03 Alkaline Phosphatase 96 U/L (35-105) 12/25/24 07:03 NT-Pro-B Natriuret Pep 59 pg/mL (0-125) 12/25/24 07:03 Total Protein 7.3 g/dL (6.6-8.7) 12/25/24 07:03 Albumin 4.1 g/dL (3.5-5.2) 12/25/24 07:03 Globulin 3.2 g/dL (1.3-4.6) 12/25/24 07:03 All radiology interpretation(s) finalized by discharge Discharge Plan Discharge Patient Disposition: Home Clinical Impression: Left leg swelling Condition: Stable Prescriptions: No Action prednisone 20 mg tablet 20 mg PO BID 5 Days Qty: 10 0RF ibuprofen 800 mg tablet 800 mg PO TID PRN (Reason: pain) Qty: 20 0RF citalopram [Celexa] 20 mg tablet 20 mg PO DAILY Qty: 30 2RF Discharge Orders: Discharge ED (Routine); Ordered 12/25/24 Ordered By: Rodrigo Romero Discharge Diet: Advance as tolerated Discharge Activity: Resume usual activity Patient Instructions: Leg Edema (ED) Print Language: Nepalese Coding Level of Care Code ED Chief Controller Tower for Mahesh Goddard
[2024-12-25 07:08] LABS: Basophils # 0.1 10^3/uL (0.0-0.1); Basophils % 0.8 %; Eosinophils # 0.2 10^3/uL (0.0-0.8); Eosinophils % 2.3 %; Hematocrit 39.1 % (36-47); Lymphocytes # 2.5 10^3/uL (0.8-4.8); Lymphocytes % 31.6 %; Mean Corpuscular HGB Conc 33.5 g/dL (30-55); Mean Corpuscular Hemoglobin 30.3 pg (27-33); Mean Corpuscular Volume 90.3 fl (85-98); Mean Platelet Volume 10.6 fL (7.4-10.4); Monocytes # 0.6 10^3/uL (0.2-0.9); Neutrophils # 4.62 10^3/uL (1.8-7.7); Nucleated Red Blood Cells % 0 %; Platelet Count 294 10^3/cmm (157-399); Red Blood Count 4.33 10^6/uL (3.85-5.65); White Blood Count 7.95 10^3/uL (3.29-11.43)
[2024-12-25 07:18] LABS: Erythrocyte Sedimentation Rate 10 mm/hr (0-15)
[2024-12-25 07:44] LABS: Alanine Aminotransferase 20 U/L (0-33); Albumin Level 4.1 g/dL (3.5-5.2); Alkaline Phosphatase 96 U/L (35-105); Aspartate Amino Transferase 16 U/L (0-32); Blood Urea Nitrogen 12 mg/dL (6-20); Calcium 9.5 mg/dL (8.5-10.5); Carbon Dioxide 24 mmol/L (22-29); Chloride 104 mmol/L (98-107); Creatinine Clr Calc Pharmacy 109.1852; Globulin 3.2 g/dL (1.3-4.6); Glucose 82 mg/dL (65-115); NT Pro B Type Natriuretic Pept 59 pg/mL (0-125); Osmolality Calculated 291 mOsm/kg (285-295); Sodium 141 mmol/L (136-145); Total Bilirubin 0.2 mg/dL (0.15-1.2); Total Protein 7.3 g/dL (6.6-8.7)
== END 2024-12-25 08:18 | disposition home or self-care (01) ==
PROVIDERS: Emergency Provider Emergency Medicine
DX: R60.0 Localized edema (principal)
CPT/HCPCS: 36415; 80053; 83880; 85025; 85651; 93971; 99284

== ENCOUNTER 2025-03-28 13:28 | Outpatient (CLI) | payer BC, MEDICAID, SELFPAY | END 2025-03-28 13:29 | disposition home or self-care (01) | LOC: SLEEP 13:32 | PROVIDERS: Referring Provider Family Medicine; Visit Provider Internal Medicine Pulmonary Disease | DX: G47.33 Obstructive sleep apnea (adult) (pediatric) (principal) | CPT/HCPCS: G0399 ==

== ENCOUNTER → 2025-05-16 09:15 | Outpatient (BNVA) | payer OTHER, MEDICAID, BC, SELFPAY | PROVIDERS: Visit Provider Nurse Practitioner | DX: J02.9 Acute pharyngitis, unspecified (principal) | CPT/HCPCS: 87880 ==